=== PATIENT | female | born 1945 | race Caucasian/White ===

== ENCOUNTER 2018-06-09 10:30 | Emergency (ER) | payer MEDICARE ==
[~2018-06-09] VITALS: Ht 152.4 cm; Wt 56.7 kg
--- NOTE | 2018-06-09 10:50 | PHYS DOC ---
Adult General Chief Complaint Chief Complaint: NOSEBLEED HPI HPI Patient is a 73 year old female who presents to the ER with complaints of a right-sided nose bleed x4 in the last 24 hours. Pt states that this morning her nosebleed lasted approximately 15 minutes. She denies any injury to her nose, headache, nausea, or vomiting. Pt states that she stopped taking her blood pressure medications 2 years ago because she didn't think she needed it. She does not take any blood thinners. Review of Systems Review of Systems Constitutional: Denies fever or chills [] HENT: Denies nasal congestion or sore throat; see HPI[] Respiratory: Denies cough or shortness of breath [] Cardiovascular: No additional information not addressed in HPI [] GI: Denies nausea or vomiting Integument: Denies rash or skin lesions [] Neurologic: Denies headache, focal weakness or sensory changes [] All other systems were reviewed and found to be within normal limits, except as documented in this note. Current Medications Current Medications Current Medications Medications (Trade) Dose Ordered Sig/Cecil Start Time Stop Time Status Last Admin Dose Admin Clonidine HCl (Catapres) 0.1 mg 1X ONCE 06/09/18 11:30 06/09/18 11:31 DC 06/09/18 11:39 0.1 MG Oxymetazoline HCl (Afrin) 2 spray 1X ONCE 06/09/18 11:00 06/09/18 11:19 DC 06/09/18 11:02 2 SPRAY Allergies Allergies Allergies Coded Allergies Type Severity Reaction Last Updated Verified Penicillins Allergy Intermediate 06/09/18 Yes Physical Exam Physical Exam Constitutional: Well developed, well nourished, no acute distress, non-toxic appearance. [] HENT: Normocephalic, atraumatic, bilateral external ears normal, oropharynx moist, no oral exudates, no active bleeding in nares; scant amount of clotted blood noted in R posterior pharynx, R nare nasal mucosa erythematous. [] Eyes: PERRLA, conjunctiva normal, no discharge. [] Neck: Normal range of motion, no tenderness, supple, no stridor. [] Cardiovascular:Heart rate regular rhythm, no murmur [] Lungs & Thorax: Bilateral breath sounds clear to auscultation [] Skin: Warm, dry, no erythema, no rash. [] Neurologic: Alert and oriented X 3, normal motor function, normal sensory function, no focal deficits noted. [] Psychologic: Affect normal, judgement normal, mood normal. [] Current Patient Data Vital Signs Vital Signs Date Time Temp Pulse Resp B/P (MAP) Pulse Ox O2 Delivery O2 Flow Rate FiO2 06/09/18 12:30 166/82 (110) 06/09/18 11:39 100 06/09/18 11:08 18 Room Air 06/09/18 10:46 97.8 97 97.8 Lab Values Laboratory Tests Test 06/09/18 10:55 White Blood Count 8.7 x10^3/uL (4.0-11.0) Red Blood Count 4.82 x10^6/uL (3.50-5.40) Hemoglobin 14.8 g/dL (12.0-15.5) Hematocrit 44.3 % (36.0-47.0) Mean Corpuscular Volume 92 fL (79-100) Mean Corpuscular Hemoglobin 31 pg (25-35) Mean Corpuscular Hemoglobin Concent 33 g/dL (31-37) Red Cell Distribution Width 14.9 % (11.5-14.5) H Platelet Count 448 x10^3/uL (140-400) H Neutrophils (%) (Auto) 85 % (31-73) H Lymphocytes (%) (Auto) 9 % (24-48) L Monocytes (%) (Auto) 4 % (0-9) Eosinophils (%) (Auto) 1 % (0-3) Basophils (%) (Auto) 1 % (0-3) Neutrophils # (Auto) 7.4 x10^3uL (1.8-7.7) Lymphocytes # (Auto) 0.8 x10^3/uL (1.0-4.8) L Monocytes # (Auto) 0.3 x10^3/uL (0.0-1.1) Eosinophils # (Auto) 0.0 x10^3/uL (0.0-0.7) Basophils # (Auto) 0.1 x10^3/uL (0.0-0.2) Segmented Neutrophils % 83 % (35-66) H Band Neutrophils % 1 % (0-9) Lymphocytes % 11 % (24-48) L Monocytes % 4 % (0-10) Basophils % 1 % (0-3) Platelet Estimate Increased (ADEQUATE) Prothrombin Time 13.3 SEC (11.7-14.0) Prothrombin Time INR 1.1 (0.8-1.1) Laboratory Tests 06/09/18 10:55 EKG EKG [] Radiology/Procedures Radiology/Procedures [] Course & Med Decision Making Course & Med Decision Making Pertinent Labs and Imaging studies reviewed. (See chart for details) dx: nose bleed resolved, hypertension Pt was given afrin in the ER, and a rapid rhino was inserted into the right nare by Dr. White and myself. Pt was given 0.1 mg of clonidine for BP. CBC and INR not concerning for anemia or clotting problems. Prescriptions written for lisinopril and amoxicillin. Pt was instructed to follow up with PCP next week about hypertension. Follow up with ENT or return to ER in 3 days for packing removal. Retrun to ER sooner symptoms worsen. Patient verbalized an understanding of home care, medications, follow-up, and return to ED instructions and was in agreement with the plan of care. [] Dragon Disclaimer Dragon Disclaimer This electronic medical record was generated, in whole or in part, using a voice recognition dictation system. Departure Departure Impression: Primary Impression: Bleeding nose Additional Impression: Hypertension Disposition: 01 HOME, SELF-CARE Condition: STABLE Referrals: NO PCP (PCP) ASTER JONES MD Patient Instructions: Nosebleed, [id number] Additional Instructions: Fill prescription and use as directed. Follow up with PCP next week about hypertension. Follow up with ENT Dr. Jones or return to ER in 3 days for packing removal. Return to ER sooner symptoms worsen. Scripts Amoxicillin (AMOXICILLIN) 875 Mg Tablet 1 TAB PO BID, #14 TAB Prov: RALPH ALEJO ELDER COUNSELOR 06/09/18 Lisinopril (LISINOPRIL) 10 Mg Tablet 1 TAB PO DAILY, #30 TAB 0 Refills Prov: RALPH ALEJO ELDER COUNSELOR 06/09/18 Problem Qualifiers Additional Impression: Hypertension Hypertension type: unspecified Qualified Codes: I10 - Essential (primary) hypertension RALPH ALEJO ELDER COUNSELOR Jun 09, 2018 10:50
[2018-06-09] MEDS ORDERED: OXYMETAZOLINE 0.05% NASAL SPRAY 30ML BOTTLE. NS ONE (11:00)
[2018-06-09 11:03] LABS: BASO # 0.1 x10^3/uL (0.0-0.2); BASO % 1 % (0-3); EOS % 1 % (0-3); HEMATOCRIT 44.3 % (36.0-47.0); HEMOGLOBIN 14.8 g/dL (12.0-15.5); LYMPH # 0.8 x10^3/uL (1.0-4.8); LYMPH % 9 % (24-48); MEAN CORPUSCULAR HEMOGLOBIN 31 pg (25-35); MEAN CORPUSCULAR HGB CONC 33 g/dL (31-37); MEAN CORPUSCULAR VOLUME 92 fL (79-100); MONO # 0.3 x10^3/uL (0.0-1.1); MONO % 4 % (0-9); NEUT # 7.4 x10^3uL (1.8-7.7); NEUT % 85 % (31-73); PLATELET COUNT 448 x10^3/uL (140-400); RED BLOOD COUNT 4.82 x10^6/uL (3.50-5.40); RED CELL DISTRIBUTION WIDTH 14.9 % (11.5-14.5); WHITE BLOOD COUNT 8.7 x10^3/uL (4.0-11.0)
[2018-06-09 11:12] LABS: PROTHROMBIN TIME PATIENT 13.3 SEC (11.7-14.0)
[2018-06-09] MEDS ORDERED: cloNIDine HCL 0.1 MG TABLET PO ONE (11:30)
[2018-06-09 11:36] LABS: % BANDS 1 % (0-9); % BASOS 1 % (0-3); % LYMPHS 11 % (24-48); % MONOS 4 % (0-10); % SEGS 83 % (35-66)
[2018-06-09 11:37] LABS: PLT ESTIMATE INCREASED (ADEQUATE)
[2018-06-09] MEDS ORDERED: LISI10TA2 PO (11:51)
[2018-06-09] MEDS ORDERED: AMOX875T PO (12:45)
[2018-06-09 13:11] VITALS: BP 177/87
== END 2018-06-09 13:12 | disposition home or self-care (01) ==
LOC: ER 10:30
DX: R04.0 Epistaxis (principal); I10 Essential (primary) hypertension; Z88.0 Allergy status to penicillin
CPT/HCPCS: 30905; 36415; 85007; 85025; 85610; 99284-25

== ENCOUNTER 2020-04-06 19:29 | Inpatient (IN) | payer MEDICARE ==
[~2020-04-06] VITALS: Ht 165.1 cm; Wt 49.0 kg
[~2020-04-06 19:29] MED LIST: AMOX875T PO; LISI10TA2 PO
[2020-04-06] MEDS ORDERED: IV NORMAL SALINE 1000ML BAG 1,000 ML IV ONE ×3 (20:15→22:15)
[2020-04-06 20:27] LABS: BASO # 0.1 x10^3/uL (0.0-0.2); BASO % 0 % (0-3); EOS # 0.1 x10^3/uL (0.0-0.7); EOS % 1 % (0-3); HEMATOCRIT 32.1 % (36.0-47.0); HEMOGLOBIN 10.8 g/dL (12.0-15.5); LYMPH # 0.9 x10^3/uL (1.0-4.8); LYMPH % 5 % (24-48); MEAN CORPUSCULAR HEMOGLOBIN 31 pg (25-35); MEAN CORPUSCULAR HGB CONC 34 g/dL (31-37); MEAN CORPUSCULAR VOLUME 92 fL (79-100); MONO # 0.8 x10^3/uL (0.0-1.1); MONO % 5 % (0-9); NEUT % 89 % (31-73); PLATELET COUNT 366 x10^3/uL (140-400); RED BLOOD COUNT 3.47 x10^6/uL (3.50-5.40); RED CELL DISTRIBUTION WIDTH 13.4 % (11.5-14.5); WHITE BLOOD COUNT 16.9 x10^3/uL (4.0-11.0)
--- NOTE | 2020-04-06 20:31 | PHYS DOC ---
Past Medical History Past Medical History: COPD, Hypertension Additional Past Medical Histor: took self off BP meds approx 2 years ago Past Surgical History: No Surgical History Smoking Status: Current Every Day Smoker Alcohol Use: Heavy Drug Use: None General Adult EDM: Chief Complaint: SHORTNESS OF BREATH HPI: HPI: Patient is a 74 year old female with past medical history of hypertension and COPD daily smoker presents with a chief complaint of generalized weakness asso ciated with nausea and vomiting since the beginning of February. Patient states nausea and vomiting have been going on and off since onset. Patient states weakness has progressively become worse. Patient has occasional cough with sputum production which she states is chronic. She denies any fever chills chest pain or shortness of breath. Review of Systems: Review of Systems: Constitutional: Denies fever or chills. [] Eyes: Denies change in visual acuity. [] HENT: Denies nasal congestion or sore throat. [] Respiratory: Denies cough or shortness of breath. [] Cardiovascular: Denies chest pain or edema. [] GI: Denies abdominal pain, bloody stools or diarrhea. [Positive nausea and vomiting] : Denies dysuria. [] Musculoskeletal: Denies back pain or joint pain. [] Integument: Denies rash. [] Neurologic: Denies headache, focal weakness or sensory changes. [Positive generalized weakness] Endocrine: Denies polyuria or polydipsia. [] Lymphatic: Denies swollen glands. [] Psychiatric: Denies depression or anxiety. [] Heart Score: Risk Factors: Risk Factors: DM, Current or recent (<one month) smoker, HTN, HLP, family history of CAD, obesity. Risk Scores: Score 0 - 3: 2.5% MACE over next 6 weeks - Discharge Home Score 4 - 6: 20.3% MACE over next 6 weeks - Admit for Clinical Observation Score 7 - 10: 72.7% MACE over next 6 weeks - Early Invasive Strategies Current Medications: Current Medications Medications (Trade) Dose Ordered Sig/Cecil Start Time Stop Time Status Last Admin Dose Admin Sodium Chloride 1,000 ml @ 1,000 mls/hr 1X ONCE 04/06/20 20:15 04/06/20 21:14 Allergies: Allergies: Allergies Coded Allergies Type Severity Reaction Last Updated Verified Penicillins Allergy Intermediate 06/09/18 Yes Physical Exam: PE: Constitutional: Well developed, well nourished, no acute distress, non-toxic appearance. [] HENT: Normocephalic, atraumatic, bilateral external ears normal, oropharynx moist, no oral exudates, nose normal. [] Eyes: PERRLA, EOMI, conjunctiva normal, no discharge. [] Neck: Normal range of motion, no tenderness, supple, no stridor. [] Cardiovascular: Tachycardia Lungs & Thorax: Bilateral breath sounds clear to auscultation [] Abdomen: Bowel sounds normal, soft, no tenderness, no masses, no pulsatile masses. [] Skin: Warm, dry, no erythema, no rash. [] Back: No tenderness, no CVA tenderness. [] Extremities: No tenderness, no cyanosis, no clubbing, ROM intact, no edema. [] Neurologic: Alert and oriented X 3, normal motor function, normal sensory function, no focal deficits noted. [] Psychologic: Affect normal, judgement normal, mood normal. [] Current Patient Data: Labs: Laboratory Tests Test 04/06/20 20:20 White Blood Count 16.9 x10^3/uL (4.0-11.0) H Red Blood Count 3.47 x10^6/uL (3.50-5.40) L Hemoglobin 10.8 g/dL (12.0-15.5) L Hematocrit 32.1 % (36.0-47.0) L Mean Corpuscular Volume 92 fL (79-100) Mean Corpuscular Hemoglobin 31 pg (25-35) Mean Corpuscular Hemoglobin Concent 34 g/dL (31-37) Red Cell Distribution Width 13.4 % (11.5-14.5) Platelet Count 366 x10^3/uL (140-400) Neutrophils (%) (Auto) 89 % (31-73) H Lymphocytes (%) (Auto) 5 % (24-48) L Monocytes (%) (Auto) 5 % (0-9) Eosinophils (%) (Auto) 1 % (0-3) Basophils (%) (Auto) 0 % (0-3) Neutrophils # (Auto) 15.0 x10^3/uL (1.8-7.7) H Lymphocytes # (Auto) 0.9 x10^3/uL (1.0-4.8) L Monocytes # (Auto) 0.8 x10^3/uL (0.0-1.1) Eosinophils # (Auto) 0.1 x10^3/uL (0.0-0.7) Basophils # (Auto) 0.1 x10^3/uL (0.0-0.2) Platelet Estimate Pending Laboratory Tests 04/06/20 20:20 EKG: EKG: EKG time 2000 Sinus tachycardia Heart rate [address] elevation no ST depression no acute [place] [] Radiology/Procedures: Radiology/Procedures: [] Impression: 1. Reticular opacities of lungs likely chronic pulmonary fibrosis. 2. Possible volume loss in the right as well as infiltrates. Atypical pneumonia or a mass with postobstructive atelectasis is possible. Course & Med Decision Making: Course & Med Decision Making Pertinent Labs and Imaging studies reviewed. (See chart for details) [] Patient was evaluated for chief complaint. Work-up consisted of laboratory analysis radiologic imaging and EKG. Results reviewed and discussed with patient. Patient x-ray chronic pulmonary fibrosis volume loss on the right as well as an infiltrate atypical pneumonia versus a mass with postobstructive atelectasis. I did dose patient with Rocephin and Zithromax. Patient's calcium noted to be 15.5 this was treated with 2 L of IV fluids. Creatinine noted to be 3.2. Did not order CT chest due to creatinine level. EKG sinus tachycardia no acute ischemic changes troponin 0 0.03 patient denies any chest pain. Patient will be admitted to the hospitalist with pulmonary consult. Chong Disclaimer: Chong Disclaimer: This electronic medical record was generated, in whole or in part, using a voice recognition dictation system. Departure Departure Referrals: NO PCP (PCP) Justicifation of Admission Dx: Justifications for Admission: Justification of Admission Dx: Yes Acute Renal Failure: 3-Fold Rise in Serum Crea Comments: Acute renal failure hypercalcemia TOBIN ORTEGA I DO Apr 06, 2020 20:31
[2020-04-06 20:36] LABS: PROTHROMBIN TIME PATIENT 14.5 SEC (11.7-14.0)
[2020-04-06 20:42] LABS: ALBUMIN 2.6 g/dL (3.4-5.0); ALBUMIN/GLOBULIN RATIO 0.6 (1.0-1.7); CREATININE 3.2 mg/dL (0.6-1.0); GFR 14.2; POTASSIUM 3.6 mmol/L (3.5-5.1); TOTAL BILIRUBIN 0.3 mg/dL (0.2-1.0); TOTAL PROTEIN 6.9 g/dL (6.4-8.2)
[2020-04-06 20:44] LABS: CALCIUM 15.5 mg/dL (8.5-10.1)
[2020-04-06 20:50] LABS: % BANDS 2 % (0-9); % LYMPHS 7 % (24-48); % METAS 1 % (0-0); % MONOS 4 % (0-10); % SEGS 86 % (35-66); PLT ESTIMATE ADEQUATE (ADEQUATE); TOXIC GRANULATION SLIGHT
--- NOTE | 2020-04-06 20:52 | RAD ---
CHEST AP ONLY Clinical History: Reason: cough sob / Spl. Instructions: / History: Technique: AP view of the chest was obtained at 04/06/2020 7:53 PM. Comparison: None. Findings: The heart is normal size. The pulmonary vessels appear normal. The patient is rotated to the right. There is is patchy opacities throughout the right lung. There is increased reticular opacities of lungs. Impression: 1. Reticular opacities of lungs likely chronic pulmonary fibrosis. 2. Possible volume loss in the right as well as infiltrates. Atypical pneumonia or a mass with postobstructive atelectasis is possible. Electronically signed by: Carroll Prieto III, MD (04/06/2020 8:49 PM) [facility]
[2020-04-06] MEDS ORDERED: cefTRIAXone IV Push 1 GM VIAL. IVP ONE (21:30)
[2020-04-06] MEDS ORDERED: AZITHROMYCIN 250 MG TABLET. PO ONE (21:30)
[2020-04-06] MEDS: IV NORMAL SALINE 1000ML BAG 1,000 ML IV SCH (21:33)
[2020-04-06] MEDS ORDERED: DEXTROSE 50% 25 GM / 50ML DISP.SYRIN. IV PRN (21:45)
[2020-04-06] MEDS ORDERED: ONDANSETRON PF 4 MG/2 ML VIAL. IV PRN (21:45)
[2020-04-06] MEDS ORDERED: DOCUSATE SODIUM 100 MG CAPSULE. PO PRN (21:45)
[2020-04-06] MEDS ORDERED: POTASSIUM CHLORIDE 10MEQ 100 ML IV PRN ×2 (21:45)
[2020-04-06] MEDS ORDERED: POTASSIUM CHLORIDE 20 MEQ TABLET.ER. PO PRN (21:45)
[2020-04-06] MEDS ORDERED: SENNOSIDES 8.6 MG TABLET PO PRN (21:45)
[2020-04-06] MEDS ORDERED: ONDANSETRON PF 4 MG/2 ML VIAL. IVP PRN (21:45)
[2020-04-06] MEDS ORDERED: ACETAMINOPHEN 325 MG TABLET. PO PRN (21:45)
[2020-04-06] MEDS ORDERED: MAGNESIUM SULFATE 2GM 50 ML IV PRN (21:45)
[2020-04-06] MEDS ORDERED: IPRATRPIUM/ALBUTEROL 0.5/2.5MG 3 ML NEBU. NEB SCH (22:00)
[2020-04-06 22:06] LABS: BILIRUBIN,URINE NEGATIVE (NEG); CLARITY,URINE CLOUDY; COLOR,URINE YELLOW; NITRITE,URINE NEGATIVE (NEG); PH,URINE 5.5 (<5.0-8.0); PROTEIN,URINE NEGATIVE (NEG-TRACE); UROBILINOGEN,URINE 0.2 mg/dL (0.2 mg/dL)
[2020-04-06 22:10] LABS: BACTERIA,URINE MANY /HPF (0-FEW); SQUAMOUS EPITHELIAL CELL,UR MANY /LPF
[2020-04-06 22:12] LABS: RBC,URINE RARE /HPF (0-2)
[2020-04-07] VITALS (7 sets, daily range): BP systolic 129–146; BP diastolic 61–80
[2020-04-07 03:35] LABS: BASO # 0.1 x10^3/uL (0.0-0.2); BASO % 1 % (0-3); EOS # 0.1 x10^3/uL (0.0-0.7); EOS % 1 % (0-3); HEMATOCRIT 30.7 % (36.0-47.0); HEMOGLOBIN 10.1 g/dL (12.0-15.5); LYMPH # 0.9 x10^3/uL (1.0-4.8); LYMPH % 5 % (24-48); MEAN CORPUSCULAR HEMOGLOBIN 31 pg (25-35); MEAN CORPUSCULAR HGB CONC 33 g/dL (31-37); MEAN CORPUSCULAR VOLUME 93 fL (79-100); MONO # 0.8 x10^3/uL (0.0-1.1); MONO % 5 % (0-9); NEUT # 15.9 x10^3/uL (1.8-7.7); NEUT % 89 % (31-73); PLATELET COUNT 356 x10^3/uL (140-400); RED CELL DISTRIBUTION WIDTH 13.7 % (11.5-14.5); WHITE BLOOD COUNT 17.9 x10^3/uL (4.0-11.0)
[2020-04-07 03:52] LABS: ALBUMIN 2.4 g/dL (3.4-5.0); ALBUMIN/GLOBULIN RATIO 0.8 (1.0-1.7); GFR 15.3; POTASSIUM 3.6 mmol/L (3.5-5.1); TOTAL BILIRUBIN 0.3 mg/dL (0.2-1.0); TOTAL PROTEIN 5.6 g/dL (6.4-8.2)
[2020-04-07 03:53] LABS: MAGNESIUM 1.6 mg/dL (1.8-2.4); PHOSPHORUS 5.7 mg/dL (2.6-4.7)
[2020-04-07 04:00] LABS: CALCIUM 14.9 mg/dL (8.5-10.1)
[2020-04-07] MEDS ORDERED: POLY17PO29 PO (07:25)
[2020-04-07] MEDS ORDERED: HYDR12.575 PO (07:25)
[2020-04-07] MEDS ORDERED: IPRATRPIUM/ALBUTEROL 0.5/2.5MG 3 ML NEBU. NEB SCH ×2 (08:00→22:00)
--- NOTE | 2020-04-07 08:32 | PDOC1 ---
History and Physical Date of Admission Date of Admission DATE: 04/07/20 TIME: 08:31 Identification/Chief Complaint Chief Complaint SEEN IN ER WITH WEAKNESS , 74 year old female with past medical history of hypertension and COPD daily smoker presents with a chief complaint of generalized weakness associated with nausea and vomiting since the beginning of February. Patient states nausea and vomiting have been going on and off since onset. Patient states weakness has progressively become worse. Patient has occasional cough with sputum production which she states is chronic. She denies any fever chills chest pain or shortness of breath. CR NOW IN 3 RANGE, C/O BACK PAIN, 15 LB RECENT WEIGHT LOSS, Nephrology consulted, uti likely Past Medical History Past Medical History Past Medical History Past Medical History Past Medical History: COPD, Hypertension Additional Past Medical Histor: took self off BP meds approx 2 years ago Past Surgical History: No Surgical History Smoking Status: Current Every Day Smoker Alcohol Use: Heavy Drug Use: None FHX COPD Musculoskeletal: Osteoarthritis Family History Family History: Hypertension Social History Smoke: <1 pack per day ALCOHOL: occassional Drugs: None Current Problem List Problem List Problems Medical Problems: (1) Hypercalcemia Status: Acute (2) Person under investigation for COVID-19 Status: Acute Current Medications Current Medications Current Medications Sodium Chloride 1,000 ml @ 1,000 mls/hr 1X ONCE IV Last administered on 04/06/20at 21:37; Start 04/06/20 at 20:15; Stop 04/06/20 at 21:14; Status DC Sodium Chloride 1,000 ml @ 1,000 mls/hr 1X ONCE IV Last administered on 04/06/20at 01:00; Start 04/06/20 at 21:30; Stop 04/06/20 at 22:29; Status DC Ceftriaxone Sodium (Rocephin) 1 gm 1X ONCE IVP Last administered on 04/06/20at 21:36; Start 04/06/20 at 21:30; Stop 04/06/20 at 21:31; Status DC Azithromycin (Zithromax) 500 mg 1X ONCE PO Last administered on 04/06/20at 21:35; Start 04/06/20 at 21:30; Stop 04/06/20 at 21:31; Status DC Ondansetron HCl (Zofran) 4 mg PRN Q8HRS PRN IV NAUSEA/VOMITING; Start 04/06/20 at 21:45; Stop 04/07/20 at 21:44 Sennosides (Senna) 17.2 mg PRN BID PRN PO CONSTIPATION; Start 04/06/20 at 21:45 Docusate Sodium (Colace) 100 mg PRN DAILY PRN PO HARD STOOLS; Start 04/06/20 at 21:45 Ondansetron HCl (Zofran) 4 mg PRN Q6HRS PRN IVP NAUSEA/VOMITING; Start 04/06/20 at 21:45 Albuterol/ Ipratropium (Duoneb) 3 ml RTQID NEB ; Start 04/07/20 at 08:00; Stop 04/06/20 at 22:04; Status DC Potassium Chloride (Klor-Con) 40 meq 1X PRN PO PER PROTOCOL; Start 04/06/20 at 21:45 Magnesium Oxide (Magnesium Oxide) 400 mg PRN BID PRN PO SEE PARAMETER; Start 04/07/20 at 09:00 Potassium Chloride/Water 100 ml @ 100 mls/hr PRN Q1HR PRN IV SEE PARAMETER; Start 04/06/20 at 21:45 Magnesium Sulfate 50 ml @ 25 mls/hr PRN Q24HRS PRN IV SEE PARAMETER; Start 04/06/20 at 21:45 Potassium Chloride/Water 100 ml @ 100 mls/hr PRN Q1HR PRN IV low k; Start 04/06/20 at 21:45 Dextrose (Dextrose 50%-Water Syringe) 12.5 gm PRN Q15MIN PRN IV SEE COMMENTS; Start 04/06/20 at 21:45 Sodium Chloride 1,000 ml @ 100 mls/hr Q10H IV ; Start 04/06/20 at 21:33 Acetaminophen (Tylenol) 650 mg PRN Q4HRS PRN PO TEMP OVER 100.4F OR MILD PAIN; Start 04/06/20 at 21:45 Albuterol/ Ipratropium (Duoneb) 3 ml Q4HRS W/A NEB ; Start 04/06/20 at 22:00; Stop 04/07/20 at 01:16; Status DC Heparin Sodium (Porcine) (Heparin Sodium) 5,000 unit Q12HR SQ ; Start 04/07/20 at 09:00 Ceftriaxone Sodium (Rocephin) 1 gm Q24H IVP ; Start 04/07/20 at 21:00 Azithromycin 500 mg/Sodium Chloride 250 ml @ 250 mls/hr Q24H IV ; Start 04/07/20 at 21:00 Sodium Chloride 1,000 ml @ 125 mls/hr 1X ONCE IV Last administered on 04/06/20at 00:43; Start 04/06/20 at 22:15; Stop 04/07/20 at 06:14; Status DC Albuterol/ Ipratropium (Duoneb) 3 ml PRN Q4HRS NEB ; Start 04/07/20 at 22:00 Active Scripts Active Lisinopril 10 Mg Tablet 1 Tab PO DAILY Reported Hydrochlorothiazide Capsule (Hydrochlorothiazide) 12.5 Mg Capsule 12.5 Mg PO DAILY Miralax (Polyethylene Glycol 3350) 17 Gm Powd.pack 1 Packet PO DAILY 2 Days dissolve in water Allergies Allergies: Coded Allergies: Penicillins (Verified Allergy, Intermediate, 06/09/18) RASH ROS Review of System Constitutional: Denies fever or chills. [] Eyes: Denies change in visual acuity. [] HENT: Denies nasal congestion or sore throat. [] Respiratory: Denies cough or shortness of breath. [] Cardiovascular: Denies chest pain or edema. [] GI: Denies abdominal pain, bloody stools or diarrhea. [Positive nausea and vomiting] : Denies dysuria. [] Musculoskeletal: pos back pain [] Integument: Denies rash. [] Neurologic: Denies headache, focal weakness or sensory changes. [Positive ge neralized weakness] Endocrine: Denies polyuria or polydipsia. [] Lymphatic: Denies swollen glands. [] Psychiatric: Denies depression or anxiety. [] Respiratory: YES: Cough Musculoskeletal: Yes Joint Stiffness Physical Exam Physical Exam Constitutional: thin no acute distress, non-toxic appearance. [] HENT: Normocephalic, atraumatic, bilateral external ears normal, oropharynx moist, no oral exudates, nose normal. [] Eyes: PERRLA, EOMI, conjunctiva normal, no discharge. [] Neck: Normal range of motion, no tenderness, supple, no stridor. [] Cardiovascular: Tachycardia Lungs & Thorax: Bilateral breath sounds clear to auscultation [] Abdomen: Bowel sounds normal, soft, no tenderness, no masses, no pulsatile masses. [] Skin: Warm, dry, no erythema, no rash. [] Back: No tenderness, no CVA tenderness. [] Extremities: No tenderness, no cyanosis, no clubbing, ROM intact, no edema. [] Neurologic: Alert and oriented X 3, normal motor function, normal sensory function, no focal deficits noted. [] Psychologic: Affect normal, judgment normal, mood normal. [] General: Alert, Oriented X3, Cooperative HEENT: EOMI Breasts: Not examined Rectal Exam: not examined PELVIC: Examination not indicated Extremities: No cyanosis Neuro: Normal speech, Cranial nerves 3-12 NL Psych/Mental Status: Mental status NL, Mood NL Vitals Vitals Vital Signs Date Time Temp Pulse Resp B/P (MAP) Pulse Ox O2 Delivery O2 Flow Rate FiO2 04/07/20 07:47 96.9 105 146/68 (94) 94 Room Air 96.9 04/06/20 21:26 16 Labs Labs Laboratory Tests Test 04/06/20 20:20 04/06/20 22:00 04/06/20 23:38 04/07/20 03:25 White Blood Count 16.9 x10^3/uL (4.0-11.0) 17.9 x10^3/uL (4.0-11.0) Red Blood Count 3.47 x10^6/uL (3.50-5.40) 3.30 x10^6/uL (3.50-5.40) Hemoglobin 10.8 g/dL (12.0-15.5) 10.1 g/dL (12.0-15.5) Hematocrit 32.1 % (36.0-47.0) 30.7 % (36.0-47.0) Mean Corpuscular Volume 92 fL (79-100) 93 fL (79-100) Mean Corpuscular Hemoglobin 31 pg (25-35) 31 pg (25-35) Mean Corpuscular Hemoglobin Concent 34 g/dL (31-37) 33 g/dL (31-37) Red Cell Distribution Width 13.4 % (11.5-14.5) 13.7 % (11.5-14.5) Platelet Count 366 x10^3/uL (140-400) 356 x10^3/uL (140-400) Neutrophils (%) (Auto) 89 % (31-73) 89 % (31-73) Lymphocytes (%) (Auto) 5 % (24-48) 5 % (24-48) Monocytes (%) (Auto) 5 % (0-9) 5 % (0-9) Eosinophils (%) (Auto) 1 % (0-3) 1 % (0-3) Basophils (%) (Auto) 0 % (0-3) 1 % (0-3) Neutrophils # (Auto) 15.0 x10^3/uL (1.8-7.7) 15.9 x10^3/uL (1.8-7.7) Lymphocytes # (Auto) 0.9 x10^3/uL (1.0-4.8) 0.9 x10^3/uL (1.0-4.8) Monocytes # (Auto) 0.8 x10^3/uL (0.0-1.1) 0.8 x10^3/uL (0.0-1.1) Eosinophils # (Auto) 0.1 x10^3/uL (0.0-0.7) 0.1 x10^3/uL (0.0-0.7) Basophils # (Auto) 0.1 x10^3/uL (0.0-0.2) 0.1 x10^3/uL (0.0-0.2) Segmented Neutrophils % 86 % (35-66) Band Neutrophils % 2 % (0-9) Lymphocytes % 7 % (24-48) Monocytes % 4 % (0-10) Metamyelocytes % 1 % (0-0) Toxic Granulation Slight Platelet Estimate Adequate (ADEQUATE) Prothrombin Time 14.5 SEC (11.7-14.0) Prothromb Time International Ratio 1.2 (0.8-1.1) Activated Partial Thromboplast Time 22 SEC (24-38) Sodium Level 133 mmol/L (136-145) 136 mmol/L (136-145) Potassium Level 3.6 mmol/L (3.5-5.1) 3.6 mmol/L (3.5-5.1) Chloride Level 97 mmol/L (98-107) 101 mmol/L (98-107) Carbon Dioxide Level 27 mmol/L (21-32) 24 mmol/L (21-32) Anion Gap 9 (6-14) 11 (6-14) Blood Urea Nitrogen 77 mg/dL (7-20) 75 mg/dL (7-20) Creatinine 3.2 mg/dL (0.6-1.0) 3.0 mg/dL (0.6-1.0) Estimated GFR (Cockcroft-Gault) 14.2 15.3 BUN/Creatinine Ratio 24 (6-20) 25 (6-20) Glucose Level 128 mg/dL (70-99) 100 mg/dL (70-99) Calcium Level 15.5 mg/dL (8.5-10.1) 14.9 mg/dL (8.5-10.1) Total Bilirubin 0.3 mg/dL (0.2-1.0) 0.3 mg/dL (0.2-1.0) Aspartate Amino Transf (AST/SGOT) 87 U/L (15-37) 76 U/L (15-37) Alanine Aminotransferase (ALT/SGPT) 19 U/L (14-59) 16 U/L (14-59) Alkaline Phosphatase 132 U/L (46-116) 118 U/L (46-116) Troponin I Quantitative 0.035 ng/mL (0.000-0.055) 0.023 ng/mL (0.000-0.055) 0.037 ng/mL (0.000-0.055) Total Protein 6.9 g/dL (6.4-8.2) 5.6 g/dL (6.4-8.2) Albumin 2.6 g/dL (3.4-5.0) 2.4 g/dL (3.4-5.0) Albumin/Globulin Ratio 0.6 (1.0-1.7) 0.8 (1.0-1.7) 25-Hydroxy Vitamin D Total 33.0 ng/mL (30-100) Urine Collection Type Void Urine Color Yellow Urine Clarity Cloudy Urine pH 5.5 (<5.0-8.0) Urine Specific [place] 1.010 (1.000-1.030) Urine Protein Negative mg/dL (NEG-TRACE) Urine Glucose (UA) Negative mg/dL (NEG) Urine Ketones (Stick) Negative mg/dL (NEG) Urine Blood Negative (NEG) Urine Nitrite Negative (NEG) Urine Bilirubin Negative (NEG) Urine Urobilinogen Dipstick 0.2 mg/dL (0.2 mg/dL) Urine Leukocyte Esterase Large (NEG) Urine RBC Rare /HPF (0-2) Urine WBC 11-20 /HPF (0-4) Urine Squamous Epithelial Cells Many /LPF Urine Bacteria Many /HPF (0-FEW) Phosphorus Level 5.7 mg/dL (2.6-4.7) Magnesium Level 1.6 mg/dL (1.8-2.4) Test 04/07/20 05:17 Lactic Acid Level 1.0 mmol/L (0.4-2.0) Laboratory Tests Test 04/06/20 20:20 04/06/20 22:00 04/06/20 23:38 04/07/20 03:25 White Blood Count 16.9 x10^3/uL (4.0-11.0) 17.9 x10^3/uL (4.0-11.0) Red Blood Count 3.47 x10^6/uL (3.50-5.40) 3.30 x10^6/uL (3.50-5.40) Hemoglobin 10.8 g/dL (12.0-15.5) 10.1 g/dL (12.0-15.5) Hematocrit 32.1 % (36.0-47.0) 30.7 % (36.0-47.0) Mean Corpuscular Volume 92 fL (79-100) 93 fL (79-100) Mean Corpuscular Hemoglobin 31 pg (25-35) 31 pg (25-35) Mean Corpuscular Hemoglobin Concent 34 g/dL (31-37) 33 g/dL (31-37) Red Cell Distribution Width 13.4 % (11.5-14.5) 13.7 % (11.5-14.5) Platelet Count 366 x10^3/uL (140-400) 356 x10^3/uL (140-400) Neutrophils (%) (Auto) 89 % (31-73) 89 % (31-73) Lymphocytes (%) (Auto) 5 % (24-48) 5 % (24-48) Monocytes (%) (Auto) 5 % (0-9) 5 % (0-9) Eosinophils (%) (Auto) 1 % (0-3) 1 % (0-3) Basophils (%) (Auto) 0 % (0-3) 1 % (0-3) Neutrophils # (Auto) 15.0 x10^3/uL (1.8-7.7) 15.9 x10^3/uL (1.8-7.7) Lymphocytes # (Auto) 0.9 x10^3/uL (1.0-4.8) 0.9 x10^3/uL (1.0-4.8) Monocytes # (Auto) 0.8 x10^3/uL (0.0-1.1) 0.8 x10^3/uL (0.0-1.1) Eosinophils # (Auto) 0.1 x10^3/uL (0.0-0.7) 0.1 x10^3/uL (0.0-0.7) Basophils # (Auto) 0.1 x10^3/uL (0.0-0.2) 0.1 x10^3/uL (0.0-0.2) Segmented Neutrophils % 86 % (35-66) Band Neutrophils % 2 % (0-9) Lymphocytes % 7 % (24-48) Monocytes % 4 % (0-10) Metamyelocytes % 1 % (0-0) Toxic Granulation Slight Platelet Estimate Adequate (ADEQUATE) Prothrombin Time 14.5 SEC (11.7-14.0) Prothromb Time International Ratio 1.2 (0.8-1.1) Activated Partial Thromboplast Time 22 SEC (24-38) Sodium Level 133 mmol/L (136-145) 136 mmol/L (136-145) Potassium Level 3.6 mmol/L (3.5-5.1) 3.6 mmol/L (3.5-5.1) Chloride Level 97 mmol/L (98-107) 101 mmol/L (98-107) Carbon Dioxide Level 27 mmol/L (21-32) 24 mmol/L (21-32) Anion Gap 9 (6-14) 11 (6-14) Blood Urea Nitrogen 77 mg/dL (7-20) 75 mg/dL (7-20) Creatinine 3.2 mg/dL (0.6-1.0) 3.0 mg/dL (0.6-1.0) Estimated GFR (Cockcroft-Gault) 14.2 15.3 BUN/Creatinine Ratio 24 (6-20) 25 (6-20) Glucose Level 128 mg/dL (70-99) 100 mg/dL (70-99) Calcium Level 15.5 mg/dL (8.5-10.1) 14.9 mg/dL (8.5-10.1) Total Bilirubin 0.3 mg/dL (0.2-1.0) 0.3 mg/dL (0.2-1.0) Aspartate Amino Transf (AST/SGOT) 87 U/L (15-37) 76 U/L (15-37) Alanine Aminotransferase (ALT/SGPT) 19 U/L (14-59) 16 U/L (14-59) Alkaline Phosphatase 132 U/L (46-116) 118 U/L (46-116) Troponin I Quantitative 0.035 ng/mL (0.000-0.055) 0.023 ng/mL (0.000-0.055) 0.037 ng/mL (0.000-0.055) Total Protein 6.9 g/dL (6.4-8.2) 5.6 g/dL (6.4-8.2) Albumin 2.6 g/dL (3.4-5.0) 2.4 g/dL (3.4-5.0) Albumin/Globulin Ratio 0.6 (1.0-1.7) 0.8 (1.0-1.7) 25-Hydroxy Vitamin D Total 33.0 ng/mL (30-100) Urine Collection Type Void Urine Color Yellow Urine Clarity Cloudy Urine pH 5.5 (<5.0-8.0) Urine Specific [place] 1.010 (1.000-1.030) Urine Protein Negative mg/dL (NEG-TRACE) Urine Glucose (UA) Negative mg/dL (NEG) Urine Ketones (Stick) Negative mg/dL (NEG) Urine Blood Negative (NEG) Urine Nitrite Negative (NEG) Urine Bilirubin Negative (NEG) Urine Urobilinogen Dipstick 0.2 mg/dL (0.2 mg/dL) Urine Leukocyte Esterase Large (NEG) Urine RBC Rare /HPF (0-2) Urine WBC 11-20 /HPF (0-4) Urine Squamous Epithelial Cells Many /LPF Urine Bacteria Many /HPF (0-FEW) Phosphorus Level 5.7 mg/dL (2.6-4.7) Magnesium Level 1.6 mg/dL (1.8-2.4) Test 04/07/20 05:17 Lactic Acid Level 1.0 mmol/L (0.4-2.0) Images Images CHEST AP ONLY Clinical History: Reason: cough sob / Spl. Instructions: / History: Technique: AP view of the chest was obtained at 04/06/2020 7:53 PM. Comparison: None. Findings: The heart is normal size. The pulmonary vessels appear normal. The patient is rotated to the right. There is is patchy opacities throughout the right lung. There is increased reticular opacities of lungs. Impression: 1. Reticular opacities of lungs likely chronic pulmonary fibrosis. 2. Possible volume loss in the right as well as infiltrates. Atypical pneumonia or a mass with postobstructive atelectasis is possible. Electronically signed by: Kina Prieto III, MD (04/06/2020 8:49 PM) [facility] DICTATED and SIGNED BY: KINA PRIETO III, MD DATE: 04/06/202048 CHEST AP ONLY Clinical History: Reason: cough sob / Spl. Instructions: / History: Technique: AP view of the chest was obtained at 04/06/2020 7:53 PM. Comparison: None. Findings: The heart is normal size. The pulmonary vessels appear normal. The patient is rotated to the right. There is is patchy opacities throughout the right lung. There is increased reticular opacities of lungs. Impression: 1. Reticular opacities of lungs likely chronic pulmonary fibrosis. 2. Possible volume loss in the right as well as infiltrates. Atypical pneumonia or a mass with postobstructive atelectasis is possible. Electronically signed by: Kina Prieto III, MD (04/06/2020 8:49 PM) [email or web address] DICTATED and SIGNED BY: KINA PRIETO III, MD DATE: 04/06/202048 VTE Prophylaxis Ordered VTE Prophylaxis Devices: No VTE Pharmacological Prophylaxi: Yes Assessment/Plan Assessment/Plan impression 1. chronic pulmonary fibrosis. 2. Possible volume loss in the right as well as infiltrates. Atypical pneumonia or a mass with postobstructive atelectasis is possible. 3. LOW BACK PAIN 4. Recent 15 lb weight loss 5. tobacco abuse disorder 6. renal failure, ? acute, CESILIA? 7. NAUSEA AND VOMITING, VOLUME DEPLETION 8. uti plan admit consult PULM COVID 19 R/O PUI consider ct chest if covid-19 neg NEPHROLOGY CONSULT DVT PROPHYLAXIS IV FLUID SUPPORT avoid nephrotoxic meds emperic iv antibiotics 76 min pt exam, chart review, > 50% of time spent with exam, chart review, pt care coordination NEEDS DPOA Justifications for Admission Other Justification CARLOS VOSS MD Apr 07, 2020 08:32
[2020-04-07] MEDS ORDERED: HEPARIN for SUB-Q USE 5,000 UNIT/ML VIAL. SQ SCH (09:00)
[2020-04-07] MEDS ORDERED: MAGNESIUM OXIDE 400 MG TABLET PO PRN (09:00)
[2020-04-07] MEDS: IV NORMAL SALINE 1000ML BAG 1,000 ML IV SCH ×3 (09:24→20:24)
--- NOTE | 2020-04-07 12:08 | NUR ---
Aerosol tx not given due to PUI status CHolmesRRT
--- NOTE | 2020-04-07 14:51 | EKG ---
[facility] [address] [place] [address] Test Date: 2020-04-06 Test Time: 20:01:32 Pat Name: JV ALVAREZ Department: Room: Gender: [employer]: MERCED : 1945 Requested By: TOBIN ORTEGA Order Number: [id number] Reading MD: Measurements Intervals [place] Rate: 117 P: -14 ND: 142 QRS: -31 QRSD: 86 T: 84 QT: 294 QTc: 414 Interpretive Statements SINUS TACHYCARDIA ATRIAL PREMATURE COMPLEX(ES) ABNORMAL LEFT AXIS DEVIATION LEFT ANTERIOR FASCICULAR BLOCK ST & T ABNORMALITY, CONSIDER HIGH LATERAL ISCHEMIA OR LEFT VENTRICULAR STRAIN ABNORMAL ECG RI6.02 No previous ECG available for comparison
[2020-04-07] MEDS: HYDROcodone/APAP 5/325MG 1 TAB TABLET PO PRN (15:22)
--- NOTE | 2020-04-07 15:27 | PDOC ---
PULMONARY PROGRESS NOTES DATE: 04/07/20 TIME: 15:25 Vitals Vital Signs Date Time Temp Pulse Resp B/P (MAP) Pulse Ox O2 Delivery O2 Flow Rate FiO2 04/07/20 11:19 97.2 124 24 139/67 (91) 92 Room Air 97.2 Labs Laboratory Tests Test 04/06/20 20:20 04/06/20 22:00 04/06/20 22:05 04/06/20 23:38 White Blood Count 16.9 x10^3/uL (4.0-11.0) Red Blood Count 3.47 x10^6/uL (3.50-5.40) Hemoglobin 10.8 g/dL (12.0-15.5) Hematocrit 32.1 % (36.0-47.0) Mean Corpuscular Volume 92 fL (79-100) Mean Corpuscular Hemoglobin 31 pg (25-35) Mean Corpuscular Hemoglobin Concent 34 g/dL (31-37) Red Cell Distribution Width 13.4 % (11.5-14.5) Platelet Count 366 x10^3/uL (140-400) Neutrophils (%) (Auto) 89 % (31-73) Lymphocytes (%) (Auto) 5 % (24-48) Monocytes (%) (Auto) 5 % (0-9) Eosinophils (%) (Auto) 1 % (0-3) Basophils (%) (Auto) 0 % (0-3) Neutrophils # (Auto) 15.0 x10^3/uL (1.8-7.7) Lymphocytes # (Auto) 0.9 x10^3/uL (1.0-4.8) Monocytes # (Auto) 0.8 x10^3/uL (0.0-1.1) Eosinophils # (Auto) 0.1 x10^3/uL (0.0-0.7) Basophils # (Auto) 0.1 x10^3/uL (0.0-0.2) Segmented Neutrophils % 86 % (35-66) Band Neutrophils % 2 % (0-9) Lymphocytes % 7 % (24-48) Monocytes % 4 % (0-10) Metamyelocytes % 1 % (0-0) Toxic Granulation Slight Platelet Estimate Adequate (ADEQUATE) Prothrombin Time 14.5 SEC (11.7-14.0) Prothromb Time International Ratio 1.2 (0.8-1.1) Activated Partial Thromboplast Time 22 SEC (24-38) Sodium Level 133 mmol/L (136-145) Potassium Level 3.6 mmol/L (3.5-5.1) Chloride Level 97 mmol/L (98-107) Carbon Dioxide Level 27 mmol/L (21-32) Anion Gap 9 (6-14) Blood Urea Nitrogen 77 mg/dL (7-20) Creatinine 3.2 mg/dL (0.6-1.0) Estimated GFR (Cockcroft-Gault) 14.2 BUN/Creatinine Ratio 24 (6-20) Glucose Level 128 mg/dL (70-99) Calcium Level 15.5 mg/dL (8.5-10.1) Total Bilirubin 0.3 mg/dL (0.2-1.0) Aspartate Amino Transf (AST/SGOT) 87 U/L (15-37) Alanine Aminotransferase (ALT/SGPT) 19 U/L (14-59) Alkaline Phosphatase 132 U/L (46-116) Troponin I Quantitative 0.035 ng/mL (0.000-0.055) 0.023 ng/mL (0.000-0.055) Total Protein 6.9 g/dL (6.4-8.2) Albumin 2.6 g/dL (3.4-5.0) Albumin/Globulin Ratio 0.6 (1.0-1.7) 25-Hydroxy Vitamin D Total 33.0 ng/mL (30-100) Urine Collection Type Void Urine Color Yellow Urine Clarity Cloudy Urine pH 5.5 (<5.0-8.0) Urine Specific Silva 1.010 (1.000-1.030) Urine Protein Negative mg/dL (NEG-TRACE) Urine Glucose (UA) Negative mg/dL (NEG) Urine Ketones (Stick) Negative mg/dL (NEG) Urine Blood Negative (NEG) Urine Nitrite Negative (NEG) Urine Bilirubin Negative (NEG) Urine Urobilinogen Dipstick 0.2 mg/dL (0.2 mg/dL) Urine Leukocyte Esterase Large (NEG) Urine RBC Rare /HPF (0-2) Urine WBC 11-20 /HPF (0-4) Urine Squamous Epithelial Cells Many /LPF Urine Bacteria Many /HPF (0-FEW) Coronavirus (PCR) Not detected (Not Detected) Test 04/07/20 03:25 04/07/20 05:17 White Blood Count 17.9 x10^3/uL (4.0-11.0) Red Blood Count 3.30 x10^6/uL (3.50-5.40) Hemoglobin 10.1 g/dL (12.0-15.5) Hematocrit 30.7 % (36.0-47.0) Mean Corpuscular Volume 93 fL (79-100) Mean Corpuscular Hemoglobin 31 pg (25-35) Mean Corpuscular Hemoglobin Concent 33 g/dL (31-37) Red Cell Distribution Width 13.7 % (11.5-14.5) Platelet Count 356 x10^3/uL (140-400) Neutrophils (%) (Auto) 89 % (31-73) Lymphocytes (%) (Auto) 5 % (24-48) Monocytes (%) (Auto) 5 % (0-9) Eosinophils (%) (Auto) 1 % (0-3) Basophils (%) (Auto) 1 % (0-3) Neutrophils # (Auto) 15.9 x10^3/uL (1.8-7.7) Lymphocytes # (Auto) 0.9 x10^3/uL (1.0-4.8) Monocytes # (Auto) 0.8 x10^3/uL (0.0-1.1) Eosinophils # (Auto) 0.1 x10^3/uL (0.0-0.7) Basophils # (Auto) 0.1 x10^3/uL (0.0-0.2) Sodium Level 136 mmol/L (136-145) Potassium Level 3.6 mmol/L (3.5-5.1) Chloride Level 101 mmol/L (98-107) Carbon Dioxide Level 24 mmol/L (21-32) Anion Gap 11 (6-14) Blood Urea Nitrogen 75 mg/dL (7-20) Creatinine 3.0 mg/dL (0.6-1.0) Estimated GFR (Cockcroft-Gault) 15.3 BUN/Creatinine Ratio 25 (6-20) Glucose Level 100 mg/dL (70-99) Calcium Level 14.9 mg/dL (8.5-10.1) Phosphorus Level 5.7 mg/dL (2.6-4.7) Magnesium Level 1.6 mg/dL (1.8-2.4) Total Bilirubin 0.3 mg/dL (0.2-1.0) Aspartate Amino Transf (AST/SGOT) 76 U/L (15-37) Alanine Aminotransferase (ALT/SGPT) 16 U/L (14-59) Alkaline Phosphatase 118 U/L (46-116) Troponin I Quantitative 0.037 ng/mL (0.000-0.055) Total Protein 5.6 g/dL (6.4-8.2) Albumin 2.4 g/dL (3.4-5.0) Albumin/Globulin Ratio 0.8 (1.0-1.7) Lactic Acid Level 1.0 mmol/L (0.4-2.0) Laboratory Tests Test 04/06/20 20:20 04/06/20 22:00 04/06/20 22:05 04/06/20 23:38 White Blood Count 16.9 x10^3/uL (4.0-11.0) Red Blood Count 3.47 x10^6/uL (3.50-5.40) Hemoglobin 10.8 g/dL (12.0-15.5) Hematocrit 32.1 % (36.0-47.0) Mean Corpuscular Volume 92 fL (79-100) Mean Corpuscular Hemoglobin 31 pg (25-35) Mean Corpuscular Hemoglobin Concent 34 g/dL (31-37) Red Cell Distribution Width 13.4 % (11.5-14.5) Platelet Count 366 x10^3/uL (140-400) Neutrophils (%) (Auto) 89 % (31-73) Lymphocytes (%) (Auto) 5 % (24-48) Monocytes (%) (Auto) 5 % (0-9) Eosinophils (%) (Auto) 1 % (0-3) Basophils (%) (Auto) 0 % (0-3) Neutrophils # (Auto) 15.0 x10^3/uL (1.8-7.7) Lymphocytes # (Auto) 0.9 x10^3/uL (1.0-4.8) Monocytes # (Auto) 0.8 x10^3/uL (0.0-1.1) Eosinophils # (Auto) 0.1 x10^3/uL (0.0-0.7) Basophils # (Auto) 0.1 x10^3/uL (0.0-0.2) Segmented Neutrophils % 86 % (35-66) Band Neutrophils % 2 % (0-9) Lymphocytes % 7 % (24-48) Monocytes % 4 % (0-10) Metamyelocytes % 1 % (0-0) Toxic Granulation Slight Platelet Estimate Adequate (ADEQUATE) Prothrombin Time 14.5 SEC (11.7-14.0) Prothromb Time International Ratio 1.2 (0.8-1.1) Activated Partial Thromboplast Time 22 SEC (24-38) Sodium Level 133 mmol/L (136-145) Potassium Level 3.6 mmol/L (3.5-5.1) Chloride Level 97 mmol/L (98-107) Carbon Dioxide Level 27 mmol/L (21-32) Anion Gap 9 (6-14) Blood Urea Nitrogen 77 mg/dL (7-20) Creatinine 3.2 mg/dL (0.6-1.0) Estimated GFR (Cockcroft-Gault) 14.2 BUN/Creatinine Ratio 24 (6-20) Glucose Level 128 mg/dL (70-99) Calcium Level 15.5 mg/dL (8.5-10.1) Total Bilirubin 0.3 mg/dL (0.2-1.0) Aspartate Amino Transf (AST/SGOT) 87 U/L (15-37) Alanine Aminotransferase (ALT/SGPT) 19 U/L (14-59) Alkaline Phosphatase 132 U/L (46-116) Troponin I Quantitative 0.035 ng/mL (0.000-0.055) 0.023 ng/mL (0.000-0.055) Total Protein 6.9 g/dL (6.4-8.2) Albumin 2.6 g/dL (3.4-5.0) Albumin/Globulin Ratio 0.6 (1.0-1.7) 25-Hydroxy Vitamin D Total 33.0 ng/mL (30-100) Urine Collection Type Void Urine Color Yellow Urine Clarity Cloudy Urine pH 5.5 (<5.0-8.0) Urine Specific Silva 1.010 (1.000-1.030) Urine Protein Negative mg/dL (NEG-TRACE) Urine Glucose (UA) Negative mg/dL (NEG) Urine Ketones (Stick) Negative mg/dL (NEG) Urine Blood Negative (NEG) Urine Nitrite Negative (NEG) Urine Bilirubin Negative (NEG) Urine Urobilinogen Dipstick 0.2 mg/dL (0.2 mg/dL) Urine Leukocyte Esterase Large (NEG) Urine RBC Rare /HPF (0-2) Urine WBC 11-20 /HPF (0-4) Urine Squamous Epithelial Cells Many /LPF Urine Bacteria Many /HPF (0-FEW) Coronavirus (PCR) Not detected (Not Detected) Test 04/07/20 03:25 04/07/20 05:17 White Blood Count 17.9 x10^3/uL (4.0-11.0) Red Blood Count 3.30 x10^6/uL (3.50-5.40) Hemoglobin 10.1 g/dL (12.0-15.5) Hematocrit 30.7 % (36.0-47.0) Mean Corpuscular Volume 93 fL (79-100) Mean Corpuscular Hemoglobin 31 pg (25-35) Mean Corpuscular Hemoglobin Concent 33 g/dL (31-37) Red Cell Distribution Width 13.7 % (11.5-14.5) Platelet Count 356 x10^3/uL (140-400) Neutrophils (%) (Auto) 89 % (31-73) Lymphocytes (%) (Auto) 5 % (24-48) Monocytes (%) (Auto) 5 % (0-9) Eosinophils (%) (Auto) 1 % (0-3) Basophils (%) (Auto) 1 % (0-3) Neutrophils # (Auto) 15.9 x10^3/uL (1.8-7.7) Lymphocytes # (Auto) 0.9 x10^3/uL (1.0-4.8) Monocytes # (Auto) 0.8 x10^3/uL (0.0-1.1) Eosinophils # (Auto) 0.1 x10^3/uL (0.0-0.7) Basophils # (Auto) 0.1 x10^3/uL (0.0-0.2) Sodium Level 136 mmol/L (136-145) Potassium Level 3.6 mmol/L (3.5-5.1) Chloride Level 101 mmol/L (98-107) Carbon Dioxide Level 24 mmol/L (21-32) Anion Gap 11 (6-14) Blood Urea Nitrogen 75 mg/dL (7-20) Creatinine 3.0 mg/dL (0.6-1.0) Estimated GFR (Cockcroft-Gault) 15.3 BUN/Creatinine Ratio 25 (6-20) Glucose Level 100 mg/dL (70-99) Calcium Level 14.9 mg/dL (8.5-10.1) Phosphorus Level 5.7 mg/dL (2.6-4.7) Magnesium Level 1.6 mg/dL (1.8-2.4) Total Bilirubin 0.3 mg/dL (0.2-1.0) Aspartate Amino Transf (AST/SGOT) 76 U/L (15-37) Alanine Aminotransferase (ALT/SGPT) 16 U/L (14-59) Alkaline Phosphatase 118 U/L (46-116) Troponin I Quantitative 0.037 ng/mL (0.000-0.055) Total Protein 5.6 g/dL (6.4-8.2) Albumin 2.4 g/dL (3.4-5.0) Albumin/Globulin Ratio 0.8 (1.0-1.7) Lactic Acid Level 1.0 mmol/L (0.4-2.0) Medications Active Scripts Medications Dose Route/Sig Max Daily Dose Days Date Category Dose Instructions Hydrochlorothiazide Capsule (Hydrochlorothiazide) 12.5 Mg Capsule 12.5 Mg PO DAILY 04/07/20 Reported Miralax (Polyethylene Glycol 3350) 17 Gm Powd.pack 1 Packet PO DAILY 2 04/07/20 Reported dissolve in water Lisinopril 10 Mg Tablet 1 Tab PO DAILY 06/09/18 Rx Impression . Full note dictated, abnormal chest x-ray possible malignancy Continue treatment for pneumonia Consult nephrology for hypercalcemia , and renal failure GABRIELA ANDREWS MD Apr 07, 2020 15:27
--- NOTE | 2020-04-07 15:43 | CONS ---
DATE OF CONSULTATION: 04/07/2020 ATTENDING PHYSICIAN: Maurisio De La Cruz MD REASON FOR CONSULTATION: The patient is seen in pulmonary consultation at the request of Dr. De La Cruz for abnormal chest x-ray. HISTORY OF PRESENT ILLNESS: The patient is a 74-year-old with comorbidities of hypertension, COPD, smoking on a daily basis, presented with generalized weakness, some nausea and dry heaves. This has been ongoing now. She also has some lower back pain, cough productive of discolored sputum. No documented fever. No history of exposures to anybody with SARS-CoV-2. The patient had a chest x-ray, which revealed some chronic changes more than likely fibrosis. She also had volume loss in the right upper lobe. There is no chest x-ray for comparison. The patient presents, denies fever, chills, nausea, vomiting, no hemoptysis. PAST MEDICAL HISTORY: COPD, tobacco dependent, hypertension. PAST SURGICAL HISTORY: No recent major surgeries. SOCIAL HISTORY: She drinks every day. Smokes every day. FAMILY HISTORY: No family history of lung disorders. ALLERGIES: PENICILLIN. REVIEW OF SYSTEMS: CONSTITUTIONAL: As indicated above. EYES: No change in visual acuity. HEENT: No nasal congestion or sore throat. PULMONARY: As indicated above. CARDIOVASCULAR: No chest pain. No pressure. GASTROINTESTINAL: As indicated above. GENITOURINARY: No dysuria or frequency. MUSCULOSKELETAL: No localized muscle aches or joint pains. SKIN: No new skin rashes. NEUROLOGIC: No headaches, diplopia or blurred vision. CURRENT MEDICATION: List was reviewed. She is being treated with ceftriaxone, nebulized treatments. PHYSICAL EXAMINATION: VITAL SIGNS: Stable. O2 saturation was greater than 92%. Since admission, she has been afebrile. HEENT: Eyes, the sclerae were nonicteric. NECK: Jugular venous distention was not elevated. LUNGS: Diminished breath sounds throughout both lung rivera. CARDIOVASCULAR: Regular rate and rhythm with S1, S2, no S3. ABDOMEN: Soft, nontender, nondistended. BACK: Reveals severe scoliosis. EXTREMITIES: No clubbing, cyanosis or edema. LABORATORY DATA: Serology for COVID-19 was negative. Electrolytes were noted. BUN was elevated. Creatinine was elevated. Calcium level was elevated. AST was elevated. Albumin was low. Phosphorus was high. Total bilirubin was high. Chest x-ray as indicated above. IMPRESSION: 1. Abnormal x-ray, revealing some chronic changes, possibly volume loss in the right upper lobe. 2. Acute exacerbation of chronic obstructive pulmonary disease. 3. Possible pneumonia. 4. Acute on chronic renal failure. 5. Hypercalcemia. 6. Hypomagnesemia. 7. Chronic obstructive pulmonary disease, unknown FEV1. 8. Alcoholism. 9. Severe protein malnutrition, present upon admission. 10. SARS-CoV-2 negative. DISCUSSION: 1. The patient presents with complex medical decision making. She has a history of COPD, tobacco dependent. She now presents with abnormal chest x-ray and hypercalcemia. We will proceed with CT chest to rule out the possibility of malignancy. For now, recommend continue treatment for pneumonia. 2. We will consult Nephrology for acute on chronic renal failure and hypercalcemia. 3. Continue empiric antibiotics. 4. The patient instructed on the importance of discontinue use of tobacco and alcohol. 5. Consult dietitian for protein malnutrition. I do appreciate the privilege in sharing in the patient's care. GABRIELA ANDREWS MD DR: LATA/laci JOB#: [id number] / [id number]
--- NOTE | 2020-04-07 16:26 | NUR ---
SW following. Spoke with RN and reviewed chart. Pt from home with son and grandson. Pt COVID negative and on room air. Pt has had some weight loss per chart review. Spoke with son who reported discharge plan is for pt to return home. Pt's son agreeable to and would like a referral to [facility]. ROBBIE completed referral to Kateryna with [facility]. Patient Choice of Vendor form completed. ROBBIE following. Addendum: 04/08/20 at 1016 by CHARLIE AVALOS Pt transferred to . LATA Guallpa to follow.
[2020-04-07] MEDS: POLYETHYLENE GLYCOL 3350 17 GM PACKET. PO SCH (17:09)
[2020-04-07] MEDS: cefTRIAXone IV Push 1 GM VIAL. IVP SCH (20:26)
[2020-04-07] MEDS: AZITHROMYCIN 500 MG in IV NORMAL SALINE 250ML 250 ML IV SCH (20:26)
[2020-04-07] MEDS: LACTOBACILLUS RHAMNOSUS GG 1 CAPSULE. PO SCH (20:27)
[2020-04-07] MEDS: HEPARIN for SUB-Q USE 5,000 UNIT/ML VIAL. SQ SCH (20:30)
--- NOTE | 2020-04-07 23:00 | NUR ---
pt transferred to room 248 from 663 a/ox4. assessment complete, denies pain at this time, poc discussed, pt verbalized understanding, call light in place, will cont to monitor pt status and safety. pmrn
--- NOTE | 2020-04-07 23:30 | RAD ---
Examination: RENAL COMPLETE BILATERAL History: Reason: acute renal injury; Covid Pending / Comparison/Correlation: None Findings: Right kidney measures 8.8 cm x 4.7 cm x 3.9 cm. Left kidney measures 6.1 cm x 3.2 cm x 2.8 cm. No hydronephrosis. Kidneys are echogenic bilaterally. Small right renal cysts are present and do not require follow-up. Impression: Echogenic kidneys compatible with chronic medical renal disease. No hydronephrosis. Electronically signed by: Michael Toscano MD (04/07/2020 11:26 PM) [facility] [facility]
--- NOTE | 2020-04-07 23:32 | RAD ---
PQRS Compliance Statement: One or more of the following individualized dose reduction techniques were utilized for this examination: 1. Automated exposure control 2. Adjustment of the mA and/or kV according to patient size 3. Use of iterative reconstruction technique CT CHEST WO CONTRAST Clinical Indication: Reason: ABNORMAL CXR PNEUMONIA / Spl. Instructions: / History: Comparison: AP chest, prior day. TECHNIQUE: Helical CT imaging of the chest is performed without IV contrast. Findings: Left thyroid lobe is absent. Atherosclerotic thoracic aorta. Calcific aortic valve stenosis. Coronary artery disease. The great vessels are normal caliber. Cardiac size is normal, no pericardial effusion. There is irregular soft tissue density of the right cardiophrenic fat measuring approximately 2.7 cm. There are small bilateral pleural effusions, larger on the left. There is bulky AP window and left paratracheal and prevascular adenopathy that is partially calcified. Meera mass measures up to 8.1 cm AP by 5 cm transverse by 8.1 cm craniocaudal. There is anterior mediastinal soft tissue nodule measuring 1 cm, image 36. Identical in appearance to the meera mass there is a subpleural partially calcified nodule in the anterior left upper lobe measuring up to 1.6 cm AP by 3 cm transverse. There appears to be a second parenchymal mass in the medial left lung apex confluent with the mediastinal meera mass. This nodule measures 2.4 x 2.3 cm. There is a pleural-based nodule in the anterior right upper lobe measuring 5 mm, image 25. There is a lytic soft tissue mass of the right anterolateral fourth rib measuring approximately 2.1 x 1.2 cm. There is interlobular septal thickening in the anterior left upper lobe. There are several other subcentimeter subpleural nodules in the lingula. There are irregular soft tissue densities in the left upper abdomen in between the stomach and the spleen. Small lytic lesions of the right eighth rib are noted. There is probable pathologic fracture, image 37. There is also probable pathologic fracture of the left lateral seventh rib, image 39. There is mild lytic destruction of the T7 vertebral body. Small lytic lesion of the upper right sternum. There are lytic lesions of the T10 and T11 vertebral bodies. IMPRESSION: 1. There are lytic bone lesions suspicious for bone metastases. Pathologic rib fractures as noted above. 2. There is a bulky left mediastinal meera mass that is partially calcified. There are partially calcified lung nodules in the medial left lung apex and anterior left upper lobe. Primary consideration is lung malignancy given the other findings. Treated lymphoma or sarcoidosis are less likely considerations. 3. There are several small pleural-based nodules bilaterally suspicious for pleural metastases. 4. Small bilateral pleural effusions. 5. 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 6. There are irregular soft tissue densities in the left upper abdomen and right cardiophrenic fat, indeterminant. Electronically signed by: Kt Joseph MD (04/07/2020 11:29 PM) [facility]
[2020-04-08 00:07] LABS: CALCIUM PTH 14.6 mg/dL (8.7-10.3); CREATININE PTH 3.04 mg/dL (0.57-1.00); PHOSPHORUS PTH 5.6 mg/dL (3.0-4.3); PTH INTACT 277 pg/mL (15-65)
[2020-04-08 03:03] VITALS: BP 133/50
[2020-04-08 05:26] LABS: BASO % 0 % (0-3); EOS % 0 % (0-3); HEMOGLOBIN 9.7 g/dL (12.0-15.5); LYMPH # 0.5 x10^3/uL (1.0-4.8); LYMPH % 2 % (24-48); MEAN CORPUSCULAR HEMOGLOBIN 31 pg (25-35); MEAN CORPUSCULAR HGB CONC 32 g/dL (31-37); MEAN CORPUSCULAR VOLUME 94 fL (79-100); MONO # 0.9 x10^3/uL (0.0-1.1); MONO % 4 % (0-9); NEUT # 21.7 x10^3/uL (1.8-7.7); NEUT % 94 % (31-73); PLATELET COUNT 348 x10^3/uL (140-400); RED BLOOD COUNT 3.18 x10^6/uL (3.50-5.40); RED CELL DISTRIBUTION WIDTH 13.8 % (11.5-14.5); WHITE BLOOD COUNT 23.1 x10^3/uL (4.0-11.0)
[2020-04-08 05:42] LABS: ALBUMIN/GLOBULIN RATIO 0.5 (1.0-1.7); CREATININE 2.7 mg/dL (0.6-1.0); GFR 17.2; POTASSIUM 3.3 mmol/L (3.5-5.1); TOTAL BILIRUBIN 0.3 mg/dL (0.2-1.0); TOTAL PROTEIN 5.7 g/dL (6.4-8.2)
[2020-04-08 05:46] LABS: CALCIUM 14.7 mg/dL (8.5-10.1)
[2020-04-08 07:00] VITALS: BP 127/54
--- NOTE | 2020-04-08 07:25 | NUR ---
DR PAGAN NOTIFIED OF CRITICAL CALCIUM RESULTS AND RESULTS OF CT CHEST NEW ORDERS RECEIVED. WILL CONT TO MONITOR PT STATUS AND SAFETY. PMRN
[2020-04-08] MEDS: LACTOBACILLUS RHAMNOSUS GG 1 CAPSULE. PO SCH ×2 (08:03→23:00)
[2020-04-08] MEDS: POLYETHYLENE GLYCOL 3350 17 GM PACKET. PO SCH (08:03)
--- NOTE | 2020-04-08 08:42 | PDOC ---
PULMONARY PROGRESS NOTES DATE: 04/08/20 TIME: 08:42 Subjective Patient awake alert following commands no new complaint Vitals Vital Signs Date Time Temp Pulse Resp B/P (MAP) Pulse Ox O2 Delivery O2 Flow Rate FiO2 04/08/20 07:00 97.4 122 16 127/54 (78) 99 Nasal Cannula 2.0 97.4 ROS: No Chest Pain, No Abdominal Pain, No Increase Cough General: Alert Lungs: Clear Cardiovascular: S1, S2 Abdomen: Soft Neuro Exam: Alert Extremities: No Edema Skin: Warm Labs Laboratory Tests Test 04/06/20 20:20 04/06/20 22:00 04/06/20 22:05 04/06/20 23:38 White Blood Count 16.9 x10^3/uL (4.0-11.0) Red Blood Count 3.47 x10^6/uL (3.50-5.40) Hemoglobin 10.8 g/dL (12.0-15.5) Hematocrit 32.1 % (36.0-47.0) Mean Corpuscular Volume 92 fL (79-100) Mean Corpuscular Hemoglobin 31 pg (25-35) Mean Corpuscular Hemoglobin Concent 34 g/dL (31-37) Red Cell Distribution Width 13.4 % (11.5-14.5) Platelet Count 366 x10^3/uL (140-400) Neutrophils (%) (Auto) 89 % (31-73) Lymphocytes (%) (Auto) 5 % (24-48) Monocytes (%) (Auto) 5 % (0-9) Eosinophils (%) (Auto) 1 % (0-3) Basophils (%) (Auto) 0 % (0-3) Neutrophils # (Auto) 15.0 x10^3/uL (1.8-7.7) Lymphocytes # (Auto) 0.9 x10^3/uL (1.0-4.8) Monocytes # (Auto) 0.8 x10^3/uL (0.0-1.1) Eosinophils # (Auto) 0.1 x10^3/uL (0.0-0.7) Basophils # (Auto) 0.1 x10^3/uL (0.0-0.2) Segmented Neutrophils % 86 % (35-66) Band Neutrophils % 2 % (0-9) Lymphocytes % 7 % (24-48) Monocytes % 4 % (0-10) Metamyelocytes % 1 % (0-0) Toxic Granulation Slight Platelet Estimate Adequate (ADEQUATE) Prothrombin Time 14.5 SEC (11.7-14.0) Prothromb Time International Ratio 1.2 (0.8-1.1) Activated Partial Thromboplast Time 22 SEC (24-38) Sodium Level 133 mmol/L (136-145) Potassium Level 3.6 mmol/L (3.5-5.1) Chloride Level 97 mmol/L (98-107) Carbon Dioxide Level 27 mmol/L (21-32) Anion Gap 9 (6-14) Blood Urea Nitrogen 77 mg/dL (7-20) Creatinine 3.2 mg/dL (0.6-1.0) Estimated GFR (Cockcroft-Gault) 14.2 BUN/Creatinine Ratio 24 (6-20) Glucose Level 128 mg/dL (70-99) Calcium Level 15.5 mg/dL (8.5-10.1) Total Bilirubin 0.3 mg/dL (0.2-1.0) Aspartate Amino Transf (AST/SGOT) 87 U/L (15-37) Alanine Aminotransferase (ALT/SGPT) 19 U/L (14-59) Alkaline Phosphatase 132 U/L (46-116) Troponin I Quantitative 0.035 ng/mL (0.000-0.055) 0.023 ng/mL (0.000-0.055) Total Protein 6.9 g/dL (6.4-8.2) Albumin 2.6 g/dL (3.4-5.0) Albumin/Globulin Ratio 0.6 (1.0-1.7) 25-Hydroxy Vitamin D Total 33.0 ng/mL (30-100) Urine Collection Type Void Urine Color Yellow Urine Clarity Cloudy Urine pH 5.5 (<5.0-8.0) Urine Specific [place] 1.010 (1.000-1.030) Urine Protein Negative mg/dL (NEG-TRACE) Urine Glucose (UA) Negative mg/dL (NEG) Urine Ketones (Stick) Negative mg/dL (NEG) Urine Blood Negative (NEG) Urine Nitrite Negative (NEG) Urine Bilirubin Negative (NEG) Urine Urobilinogen Dipstick 0.2 mg/dL (0.2 mg/dL) Urine Leukocyte Esterase Large (NEG) Urine RBC Rare /HPF (0-2) Urine WBC 11-20 /HPF (0-4) Urine Squamous Epithelial Cells Many /LPF Urine Bacteria Many /HPF (0-FEW) Coronavirus (PCR) Not detected (Not Detected) Estimated GFR (Non- 15 (>59) EGFR 17 (>59) PTH (Intact) Specimen Description Comment (.) Parathyroid Hormone (Intact) 277 pg/mL (15-65) Calcium (PTH Intact) 14.6 mg/dL (8.7-10.3) Creatinine (PTH Intact) 3.04 mg/dL (0.57-1.00) Phosphorus (PTH Intact) 5.6 mg/dL (3.0-4.3) Test 04/07/20 03:25 04/07/20 05:17 04/08/20 05:00 White Blood Count 17.9 x10^3/uL (4.0-11.0) 23.1 x10^3/uL (4.0-11.0) Red Blood Count 3.30 x10^6/uL (3.50-5.40) 3.18 x10^6/uL (3.50-5.40) Hemoglobin 10.1 g/dL (12.0-15.5) 9.7 g/dL (12.0-15.5) Hematocrit 30.7 % (36.0-47.0) 30.0 % (36.0-47.0) Mean Corpuscular Volume 93 fL (79-100) 94 fL (79-100) Mean Corpuscular Hemoglobin 31 pg (25-35) 31 pg (25-35) Mean Corpuscular Hemoglobin Concent 33 g/dL (31-37) 32 g/dL (31-37) Red Cell Distribution Width 13.7 % (11.5-14.5) 13.8 % (11.5-14.5) Platelet Count 356 x10^3/uL (140-400) 348 x10^3/uL (140-400) Neutrophils (%) (Auto) 89 % (31-73) 94 % (31-73) Lymphocytes (%) (Auto) 5 % (24-48) 2 % (24-48) Monocytes (%) (Auto) 5 % (0-9) 4 % (0-9) Eosinophils (%) (Auto) 1 % (0-3) 0 % (0-3) Basophils (%) (Auto) 1 % (0-3) 0 % (0-3) Neutrophils # (Auto) 15.9 x10^3/uL (1.8-7.7) 21.7 x10^3/uL (1.8-7.7) Lymphocytes # (Auto) 0.9 x10^3/uL (1.0-4.8) 0.5 x10^3/uL (1.0-4.8) Monocytes # (Auto) 0.8 x10^3/uL (0.0-1.1) 0.9 x10^3/uL (0.0-1.1) Eosinophils # (Auto) 0.1 x10^3/uL (0.0-0.7) 0.0 x10^3/uL (0.0-0.7) Basophils # (Auto) 0.1 x10^3/uL (0.0-0.2) 0.0 x10^3/uL (0.0-0.2) Sodium Level 136 mmol/L (136-145) 139 mmol/L (136-145) Potassium Level 3.6 mmol/L (3.5-5.1) 3.3 mmol/L (3.5-5.1) Chloride Level 101 mmol/L (98-107) 105 mmol/L (98-107) Carbon Dioxide Level 24 mmol/L (21-32) 23 mmol/L (21-32) Anion Gap 11 (6-14) 11 (6-14) Blood Urea Nitrogen 75 mg/dL (7-20) 70 mg/dL (7-20) Creatinine 3.0 mg/dL (0.6-1.0) 2.7 mg/dL (0.6-1.0) Estimated GFR (Cockcroft-Gault) 15.3 17.2 BUN/Creatinine Ratio 25 (6-20) 26 (6-20) Glucose Level 100 mg/dL (70-99) 79 mg/dL (70-99) Calcium Level 14.9 mg/dL (8.5-10.1) 14.7 mg/dL (8.5-10.1) Phosphorus Level 5.7 mg/dL (2.6-4.7) Magnesium Level 1.6 mg/dL (1.8-2.4) Total Bilirubin 0.3 mg/dL (0.2-1.0) 0.3 mg/dL (0.2-1.0) Aspartate Amino Transf (AST/SGOT) 76 U/L (15-37) 88 U/L (15-37) Alanine Aminotransferase (ALT/SGPT) 16 U/L (14-59) 17 U/L (14-59) Alkaline Phosphatase 118 U/L (46-116) 104 U/L (46-116) Troponin I Quantitative 0.037 ng/mL (0.000-0.055) Total Protein 5.6 g/dL (6.4-8.2) 5.7 g/dL (6.4-8.2) Albumin 2.4 g/dL (3.4-5.0) 2.0 g/dL (3.4-5.0) Albumin/Globulin Ratio 0.8 (1.0-1.7) 0.5 (1.0-1.7) Lactic Acid Level 1.0 mmol/L (0.4-2.0) Laboratory Tests Test 04/08/20 05:00 White Blood Count 23.1 x10^3/uL (4.0-11.0) Red Blood Count 3.18 x10^6/uL (3.50-5.40) Hemoglobin 9.7 g/dL (12.0-15.5) Hematocrit 30.0 % (36.0-47.0) Mean Corpuscular Volume 94 fL (79-100) Mean Corpuscular Hemoglobin 31 pg (25-35) Mean Corpuscular Hemoglobin Concent 32 g/dL (31-37) Red Cell Distribution Width 13.8 % (11.5-14.5) Platelet Count 348 x10^3/uL (140-400) Neutrophils (%) (Auto) 94 % (31-73) Lymphocytes (%) (Auto) 2 % (24-48) Monocytes (%) (Auto) 4 % (0-9) Eosinophils (%) (Auto) 0 % (0-3) Basophils (%) (Auto) 0 % (0-3) Neutrophils # (Auto) 21.7 x10^3/uL (1.8-7.7) Lymphocytes # (Auto) 0.5 x10^3/uL (1.0-4.8) Monocytes # (Auto) 0.9 x10^3/uL (0.0-1.1) Eosinophils # (Auto) 0.0 x10^3/uL (0.0-0.7) Basophils # (Auto) 0.0 x10^3/uL (0.0-0.2) Sodium Level 139 mmol/L (136-145) Potassium Level 3.3 mmol/L (3.5-5.1) Chloride Level 105 mmol/L (98-107) Carbon Dioxide Level 23 mmol/L (21-32) Anion Gap 11 (6-14) Blood Urea Nitrogen 70 mg/dL (7-20) Creatinine 2.7 mg/dL (0.6-1.0) Estimated GFR (Cockcroft-Gault) 17.2 BUN/Creatinine Ratio 26 (6-20) Glucose Level 79 mg/dL (70-99) Calcium Level 14.7 mg/dL (8.5-10.1) Total Bilirubin 0.3 mg/dL (0.2-1.0) Aspartate Amino Transf (AST/SGOT) 88 U/L (15-37) Alanine Aminotransferase (ALT/SGPT) 17 U/L (14-59) Alkaline Phosphatase 104 U/L (46-116) Total Protein 5.7 g/dL (6.4-8.2) Albumin 2.0 g/dL (3.4-5.0) Albumin/Globulin Ratio 0.5 (1.0-1.7) Medications Active Scripts Medications Dose Route/Sig Max Daily Dose Days Date Category Dose Instructions Hydrochlorothiazide Capsule (Hydrochlorothiazide) 12.5 Mg Capsule 12.5 Mg PO DAILY 04/07/20 Reported Miralax (Polyethylene Glycol 3350) 17 Gm Powd.pack 1 Packet PO DAILY 2 04/07/20 Reported dissolve in water Lisinopril 10 Mg Tablet 1 Tab PO DAILY 06/09/18 Rx Impression . IMPRESSION: 1. Abnormal x-ray, revealing some chronic changes, possibly volume loss in the right upper lobe.SEE CT REPORT 2. Acute exacerbation of chronic obstructive pulmonary disease. 3. Possible pneumonia. 4. Acute on chronic renal failure. 5. Hypercalcemia. 6. Hypomagnesemia. 7. Chronic obstructive pulmonary disease, unknown FEV1. 8. Alcoholism. 9. Severe protein malnutrition, present upon admission. 10. SARS-CoV-[address] CEST IMPRESSION: 1. There are lytic bone lesions suspicious for bone metastases. Pathologic rib fractures as noted above. 2. There is a bulky left mediastinal ronald mass that is partially calcified. There are partially calcified lung nodules in the medial left lung apex and anterior left upper lobe. Primary consideration is lung malignancy given the other findings. Treated lymphoma or sarcoidosis are less likely considerations. 3. There are several small pleural-based nodules bilaterally suspicious for pleural metastases. 4. Small bilateral pleural effusions. 5. 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 6. There are irregular soft tissue densities in the left upper abdomen and right cardiophrenic fat, indeterminant. Plan . CT report was relayed to the patient and son at the bedside I recommend biopsy, discussed with Dr. Mcbride, bone lesion biopsy Patient declined to undergo biopsy for now Appreciate Dr. Tatum input Awaiting oncology input For now continue empiric antibiotics Son at the bedside, I gave him my business card, patient will think about the possibility of performing a biopsy. I did inform the patient and son that I think this is more or less a malignant process. GABRIELA ANDREWS MD Apr 08, 2020 08:42
[2020-04-08 11:00] VITALS: BP 130/57
[2020-04-08] MEDS: IV NORMAL SALINE 1000ML BAG 1,000 ML IV SCH ×2 (12:44→23:11)
--- NOTE | 2020-04-08 12:45 | NUR ---
SS following for discharge planning. SS reviewed pt chart and discussed with pt RN. Pt is from home with family and is currently requiring oxygen. Pt on IV Azithromycin and IV Rocephin. COVID19 negative. PT/OT recommended retirement unit. Hematology consulted for suspicion of cancer. SS will continue to follow for discharge planning.
--- NOTE | 2020-04-08 14:15 | PDOC ---
PROGRESS NOTES Date of Service: DATE: 04/08/20 TIME: 14:10 Chief Complaint Chief Complaint Generalized weakness, given results of imaging studies, high suspicion for underlying malignancy. Acute exacerbation of chronic obstructive pulmonary disease. Community acquired pneumonia.? Acute on chronic renal failure. Hypercalcemia. Malignancy related, Multiple myeloma a possibility given lytic lesions on imaging studies. Hypomagnesemia. History of alcohol abuse Severe protein malnutrition, present upon admission. SARS-CoV-2 negative. Plan: follow recommendations from Nephrology and Pulm construction safety consultant will consult oncology will order spep and upep reassess in the am History of Present Illness History of Present Illness SEEN IN ER WITH WEAKNESS , 74 year old female with past medical history of hypertension and COPD daily smoker presents with a chief complaint of generalized weakness associated with nausea and vomiting since the beginning of February. Patient states nausea and vomiting have been going on and off since onset. Patient states weakness has progressively become worse. Patient has occasional cough with sputum production which she states is chronic. She denies any fever chills chest pain or shortness of breath. CR NOW IN 3 RANGE, C/O BACK PAIN, 15 LB RECENT WEIGHT LOSS, Nephrology consulted, uti likely 04/08/2020 Patient feeling better she relates to me that she has had hypercalcemia for a long time now. Patient was given results of her imaging studies and the suspicion for malignancy She seems more interested in going home Vitals Vitals Vital Signs Date Time Temp Pulse Resp B/P (MAP) Pulse Ox O2 Delivery O2 Flow Rate FiO2 04/08/20 11:00 97.6 117 16 130/57 (81) 98 Nasal Cannula 2.0 97.6 Physical Exam General: Alert, Oriented X3, Cooperative Heart: Regular rate, Normal S1, Normal S2 Lungs: Wheezing Abdomen: Normal bowel sounds, Soft, No tenderness Extremities: No cyanosis Labs LABS Laboratory Tests Test 04/08/20 05:00 White Blood Count 23.1 x10^3/uL (4.0-11.0) Red Blood Count 3.18 x10^6/uL (3.50-5.40) Hemoglobin 9.7 g/dL (12.0-15.5) Hematocrit 30.0 % (36.0-47.0) Mean Corpuscular Volume 94 fL (79-100) Mean Corpuscular Hemoglobin 31 pg (25-35) Mean Corpuscular Hemoglobin Concent 32 g/dL (31-37) Red Cell Distribution Width 13.8 % (11.5-14.5) Platelet Count 348 x10^3/uL (140-400) Neutrophils (%) (Auto) 94 % (31-73) Lymphocytes (%) (Auto) 2 % (24-48) Monocytes (%) (Auto) 4 % (0-9) Eosinophils (%) (Auto) 0 % (0-3) Basophils (%) (Auto) 0 % (0-3) Neutrophils # (Auto) 21.7 x10^3/uL (1.8-7.7) Lymphocytes # (Auto) 0.5 x10^3/uL (1.0-4.8) Monocytes # (Auto) 0.9 x10^3/uL (0.0-1.1) Eosinophils # (Auto) 0.0 x10^3/uL (0.0-0.7) Basophils # (Auto) 0.0 x10^3/uL (0.0-0.2) Sodium Level 139 mmol/L (136-145) Potassium Level 3.3 mmol/L (3.5-5.1) Chloride Level 105 mmol/L (98-107) Carbon Dioxide Level 23 mmol/L (21-32) Anion Gap 11 (6-14) Blood Urea Nitrogen 70 mg/dL (7-20) Creatinine 2.7 mg/dL (0.6-1.0) Estimated GFR (Cockcroft-Gault) 17.2 BUN/Creatinine Ratio 26 (6-20) Glucose Level 79 mg/dL (70-99) Calcium Level 14.7 mg/dL (8.5-10.1) Total Bilirubin 0.3 mg/dL (0.2-1.0) Aspartate Amino Transf (AST/SGOT) 88 U/L (15-37) Alanine Aminotransferase (ALT/SGPT) 17 U/L (14-59) Alkaline Phosphatase 104 U/L (46-116) Total Protein 5.7 g/dL (6.4-8.2) Albumin 2.0 g/dL (3.4-5.0) Albumin/Globulin Ratio 0.5 (1.0-1.7) Assessment and Plan Assessmemt and Plan Problems Medical Problems: (1) Hypercalcemia Status: Acute (2) Person under investigation for COVID-19 Status: Acute Comment Review of Relevant I have reviewed the following items luke (where applicable) has been applied. Labs Laboratory Tests Test 04/06/20 20:20 04/06/20 22:00 04/06/20 22:05 04/06/20 23:38 White Blood Count 16.9 x10^3/uL (4.0-11.0) Red Blood Count 3.47 x10^6/uL (3.50-5.40) Hemoglobin 10.8 g/dL (12.0-15.5) Hematocrit 32.1 % (36.0-47.0) Mean Corpuscular Volume 92 fL (79-100) Mean Corpuscular Hemoglobin 31 pg (25-35) Mean Corpuscular Hemoglobin Concent 34 g/dL (31-37) Red Cell Distribution Width 13.4 % (11.5-14.5) Platelet Count 366 x10^3/uL (140-400) Neutrophils (%) (Auto) 89 % (31-73) Lymphocytes (%) (Auto) 5 % (24-48) Monocytes (%) (Auto) 5 % (0-9) Eosinophils (%) (Auto) 1 % (0-3) Basophils (%) (Auto) 0 % (0-3) Neutrophils # (Auto) 15.0 x10^3/uL (1.8-7.7) Lymphocytes # (Auto) 0.9 x10^3/uL (1.0-4.8) Monocytes # (Auto) 0.8 x10^3/uL (0.0-1.1) Eosinophils # (Auto) 0.1 x10^3/uL (0.0-0.7) Basophils # (Auto) 0.1 x10^3/uL (0.0-0.2) Segmented Neutrophils % 86 % (35-66) Band Neutrophils % 2 % (0-9) Lymphocytes % 7 % (24-48) Monocytes % 4 % (0-10) Metamyelocytes % 1 % (0-0) Toxic Granulation Slight Platelet Estimate Adequate (ADEQUATE) Prothrombin Time 14.5 SEC (11.7-14.0) Prothromb Time International Ratio 1.2 (0.8-1.1) Activated Partial Thromboplast Time 22 SEC (24-38) Sodium Level 133 mmol/L (136-145) Potassium Level 3.6 mmol/L (3.5-5.1) Chloride Level 97 mmol/L (98-107) Carbon Dioxide Level 27 mmol/L (21-32) Anion Gap 9 (6-14) Blood Urea Nitrogen 77 mg/dL (7-20) Creatinine 3.2 mg/dL (0.6-1.0) Estimated GFR (Cockcroft-Gault) 14.2 BUN/Creatinine Ratio 24 (6-20) Glucose Level 128 mg/dL (70-99) Calcium Level 15.5 mg/dL (8.5-10.1) Total Bilirubin 0.3 mg/dL (0.2-1.0) Aspartate Amino Transf (AST/SGOT) 87 U/L (15-37) Alanine Aminotransferase (ALT/SGPT) 19 U/L (14-59) Alkaline Phosphatase 132 U/L (46-116) Troponin I Quantitative 0.035 ng/mL (0.000-0.055) 0.023 ng/mL (0.000-0.055) Total Protein 6.9 g/dL (6.4-8.2) Albumin 2.6 g/dL (3.4-5.0) Albumin/Globulin Ratio 0.6 (1.0-1.7) 25-Hydroxy Vitamin D Total 33.0 ng/mL (30-100) Urine Collection Type Void Urine Color Yellow Urine Clarity Cloudy Urine pH 5.5 (<5.0-8.0) Urine Specific [place] 1.010 (1.000-1.030) Urine Protein Negative mg/dL (NEG-TRACE) Urine Glucose (UA) Negative mg/dL (NEG) Urine Ketones (Stick) Negative mg/dL (NEG) Urine Blood Negative (NEG) Urine Nitrite Negative (NEG) Urine Bilirubin Negative (NEG) Urine Urobilinogen Dipstick 0.2 mg/dL (0.2 mg/dL) Urine Leukocyte Esterase Large (NEG) Urine RBC Rare /HPF (0-2) Urine WBC 11-20 /HPF (0-4) Urine Squamous Epithelial Cells Many /LPF Urine Bacteria Many /HPF (0-FEW) Coronavirus (PCR) Not detected (Not Detected) Estimated GFR (Non- 15 (>59) EGFR 17 (>59) PTH (Intact) Specimen Description Comment (.) Parathyroid Hormone (Intact) 277 pg/mL (15-65) Calcium (PTH Intact) 14.6 mg/dL (8.7-10.3) Creatinine (PTH Intact) 3.04 mg/dL (0.57-1.00) Phosphorus (PTH Intact) 5.6 mg/dL (3.0-4.3) Test 04/07/20 03:25 04/07/20 05:17 04/08/20 05:00 White Blood Count 17.9 x10^3/uL (4.0-11.0) 23.1 x10^3/uL (4.0-11.0) Red Blood Count 3.30 x10^6/uL (3.50-5.40) 3.18 x10^6/uL (3.50-5.40) Hemoglobin 10.1 g/dL (12.0-15.5) 9.7 g/dL (12.0-15.5) Hematocrit 30.7 % (36.0-47.0) 30.0 % (36.0-47.0) Mean Corpuscular Volume 93 fL (79-100) 94 fL (79-100) Mean Corpuscular Hemoglobin 31 pg (25-35) 31 pg (25-35) Mean Corpuscular Hemoglobin Concent 33 g/dL (31-37) 32 g/dL (31-37) Red Cell Distribution Width 13.7 % (11.5-14.5) 13.8 % (11.5-14.5) Platelet Count 356 x10^3/uL (140-400) 348 x10^3/uL (140-400) Neutrophils (%) (Auto) 89 % (31-73) 94 % (31-73) Lymphocytes (%) (Auto) 5 % (24-48) 2 % (24-48) Monocytes (%) (Auto) 5 % (0-9) 4 % (0-9) Eosinophils (%) (Auto) 1 % (0-3) 0 % (0-3) Basophils (%) (Auto) 1 % (0-3) 0 % (0-3) Neutrophils # (Auto) 15.9 x10^3/uL (1.8-7.7) 21.7 x10^3/uL (1.8-7.7) Lymphocytes # (Auto) 0.9 x10^3/uL (1.0-4.8) 0.5 x10^3/uL (1.0-4.8) Monocytes # (Auto) 0.8 x10^3/uL (0.0-1.1) 0.9 x10^3/uL (0.0-1.1) Eosinophils # (Auto) 0.1 x10^3/uL (0.0-0.7) 0.0 x10^3/uL (0.0-0.7) Basophils # (Auto) 0.1 x10^3/uL (0.0-0.2) 0.0 x10^3/uL (0.0-0.2) Sodium Level 136 mmol/L (136-145) 139 mmol/L (136-145) Potassium Level 3.6 mmol/L (3.5-5.1) 3.3 mmol/L (3.5-5.1) Chloride Level 101 mmol/L (98-107) 105 mmol/L (98-107) Carbon Dioxide Level 24 mmol/L (21-32) 23 mmol/L (21-32) Anion Gap 11 (6-14) 11 (6-14) Blood Urea Nitrogen 75 mg/dL (7-20) 70 mg/dL (7-20) Creatinine 3.0 mg/dL (0.6-1.0) 2.7 mg/dL (0.6-1.0) Estimated GFR (Cockcroft-Gault) 15.3 17.2 BUN/Creatinine Ratio 25 (6-20) 26 (6-20) Glucose Level 100 mg/dL (70-99) 79 mg/dL (70-99) Calcium Level 14.9 mg/dL (8.5-10.1) 14.7 mg/dL (8.5-10.1) Phosphorus Level 5.7 mg/dL (2.6-4.7) Magnesium Level 1.6 mg/dL (1.8-2.4) Total Bilirubin 0.3 mg/dL (0.2-1.0) 0.3 mg/dL (0.2-1.0) Aspartate Amino Transf (AST/SGOT) 76 U/L (15-37) 88 U/L (15-37) Alanine Aminotransferase (ALT/SGPT) 16 U/L (14-59) 17 U/L (14-59) Alkaline Phosphatase 118 U/L (46-116) 104 U/L (46-116) Troponin I Quantitative 0.037 ng/mL (0.000-0.055) Total Protein 5.6 g/dL (6.4-8.2) 5.7 g/dL (6.4-8.2) Albumin 2.4 g/dL (3.4-5.0) 2.0 g/dL (3.4-5.0) Albumin/Globulin Ratio 0.8 (1.0-1.7) 0.5 (1.0-1.7) Lactic Acid Level 1.0 mmol/L (0.4-2.0) Laboratory Tests Test 04/08/20 05:00 White Blood Count 23.1 x10^3/uL (4.0-11.0) Red Blood Count 3.18 x10^6/uL (3.50-5.40) Hemoglobin 9.7 g/dL (12.0-15.5) Hematocrit 30.0 % (36.0-47.0) Mean Corpuscular Volume 94 fL (79-100) Mean Corpuscular Hemoglobin 31 pg (25-35) Mean Corpuscular Hemoglobin Concent 32 g/dL (31-37) Red Cell Distribution Width 13.8 % (11.5-14.5) Platelet Count 348 x10^3/uL (140-400) Neutrophils (%) (Auto) 94 % (31-73) Lymphocytes (%) (Auto) 2 % (24-48) Monocytes (%) (Auto) 4 % (0-9) Eosinophils (%) (Auto) 0 % (0-3) Basophils (%) (Auto) 0 % (0-3) Neutrophils # (Auto) 21.7 x10^3/uL (1.8-7.7) Lymphocytes # (Auto) 0.5 x10^3/uL (1.0-4.8) Monocytes # (Auto) 0.9 x10^3/uL (0.0-1.1) Eosinophils # (Auto) 0.0 x10^3/uL (0.0-0.7) Basophils # (Auto) 0.0 x10^3/uL (0.0-0.2) Sodium Level 139 mmol/L (136-145) Potassium Level 3.3 mmol/L (3.5-5.1) Chloride Level 105 mmol/L (98-107) Carbon Dioxide Level 23 mmol/L (21-32) Anion Gap 11 (6-14) Blood Urea Nitrogen 70 mg/dL (7-20) Creatinine 2.7 mg/dL (0.6-1.0) Estimated GFR (Cockcroft-Gault) 17.2 BUN/Creatinine Ratio 26 (6-20) Glucose Level 79 mg/dL (70-99) Calcium Level 14.7 mg/dL (8.5-10.1) Total Bilirubin 0.3 mg/dL (0.2-1.0) Aspartate Amino Transf (AST/SGOT) 88 U/L (15-37) Alanine Aminotransferase (ALT/SGPT) 17 U/L (14-59) Alkaline Phosphatase 104 U/L (46-116) Total Protein 5.7 g/dL (6.4-8.2) Albumin 2.0 g/dL (3.4-5.0) Albumin/Globulin Ratio 0.5 (1.0-1.7) Microbiology 04/07/20 Blood Culture - Preliminary, Resulted NO GROWTH AFTER 1 DAY 04/06/20 Urine Culture - Final, Complete Medications Current Medications Sodium Chloride 1,000 ml @ 1,000 mls/hr 1X ONCE IV Last administered on 04/06/20at 21:37; Start 04/06/20 at 20:15; Stop 04/06/20 at 21:14; Status DC Sodium Chloride 1,000 ml @ 1,000 mls/hr 1X ONCE IV Last administered on 04/06/20at 01:00; Start 04/06/20 at 21:30; Stop 04/06/20 at 22:29; Status DC Ceftriaxone Sodium (Rocephin) 1 gm 1X ONCE IVP Last administered on 04/06/20at 21:36; Start 04/06/20 at 21:30; Stop 04/06/20 at 21:31; Status DC Azithromycin (Zithromax) 500 mg 1X ONCE PO Last administered on 04/06/20at 21:35; Start 04/06/20 at 21:30; Stop 04/06/20 at 21:31; Status DC Ondansetron HCl (Zofran) 4 mg PRN Q8HRS PRN IV NAUSEA/VOMITING Last administered on 04/07/20at 20:26; Start 04/06/20 at 21:45; Stop 04/07/20 at 21:44; Status DC Sennosides (Senna) 17.2 mg PRN BID PRN PO CONSTIPATION Last administered on 04/07at 09:24; Start 04/06/20 at 21:45 Docusate Sodium (Colace) 100 mg PRN DAILY PRN PO HARD STOOLS Last administered on 04/07/20at 09:24; Start 04/06/20 at 21:45 Ondansetron HCl (Zofran) 4 mg PRN Q6HRS PRN IVP NAUSEA/VOMITING; Start 04/06/20 at 21:45 Albuterol/ Ipratropium (Duoneb) 3 ml RTQID NEB ; Start 04/07/20 at 08:00; Stop 04/06/20 at 22:04; Status DC Potassium Chloride (Klor-Con) 40 meq 1X PRN PO PER PROTOCOL; Start 04/06/20 at 21:45 Magnesium Oxide (Magnesium Oxide) 400 mg PRN BID PRN PO SEE PARAMETER; Start 04/07/20 at 09:00 Potassium Chloride/Water 100 ml @ 100 mls/hr PRN Q1HR PRN IV SEE PARAMETER; Start 04/06/20 at 21:45 Magnesium Sulfate 50 ml @ 25 mls/hr PRN Q24HRS PRN IV SEE PARAMETER; Start 04/06/20 at 21:45 Potassium Chloride/Water 100 ml @ 100 mls/hr PRN Q1HR PRN IV low k; Start 04/06/20 at 21:45 Dextrose (Dextrose 50%-Water Syringe) 12.5 gm PRN Q15MIN PRN IV SEE COMMENTS; Start 04/06/20 at 21:45 Sodium Chloride 1,000 ml @ 100 mls/hr Q10H IV Last administered on 04/08/20at 12:44; Start 04/06/20 at 21:33 Acetaminophen (Tylenol) 650 mg PRN Q4HRS PRN PO TEMP OVER 100.4F OR MILD PAIN Last administered on 04/07/20at 09:24; Start 04/06/20 at 21:45 Albuterol/ Ipratropium (Duoneb) 3 ml Q4HRS W/A NEB ; Start 04/06/20 at 22:00; Stop 04/07/20 at 01:16; Status DC Heparin Sodium (Porcine) (Heparin Sodium) 5,000 unit Q12HR SQ Last administered on 04/07/20at 09:25; Start 04/07/20 at 09:00; Stop 04/07/20 at 15:34; Status DC Ceftriaxone Sodium (Rocephin) 1 gm Q24H IVP Last administered on 04/07/20at 20:26; Start 04/07/20 at 21:00 Azithromycin 500 mg/Sodium Chloride 250 ml @ 250 mls/hr Q24H IV Last administered on 04/07/20at 20:26; Start 04/07/20 at 21:00 Sodium Chloride 1,000 ml @ 125 mls/hr 1X ONCE IV Last administered on 04/06/20at 00:43; Start 04/06/20 at 22:15; Stop 04/07/20 at 06:14; Status DC Albuterol/ Ipratropium (Duoneb) 3 ml PRN Q4HRS NEB ; Start 04/07/20 at 22:00 Lactobacillus Rhamnosus (Culturelle) 1 cap BID PO Last administered on 04/08/20at 08:03; Start 04/07/20 at 21:00 Acetaminophen/ Hydrocodone Bitart (Lortab 5/325) 1 tab PRN Q6HRS PRN PO MODERATE - SEVERE PAIN Last administered on 04/07/20at 15:22; Start 04/07/20 at 15:15 Polyethylene Glycol (miraLAX PACKET) 17 gm DAILY PO Last administered on 04/08/20at 08:03; Start 04/07/20 at 16:00 Heparin Sodium (Porcine) (Heparin Sodium) 5,000 unit Q8HRS SQ Last administered on 04/07/20at 20:30; Start 04/07/20 at 22:00 Active Scripts Active Lisinopril 10 Mg Tablet 1 Tab PO DAILY Reported Hydrochlorothiazide Capsule (Hydrochlorothiazide) 12.5 Mg Capsule 12.5 Mg PO DAILY Miralax (Polyethylene Glycol 3350) 17 Gm Powd.pack 1 Packet PO DAILY 2 Days dissolve in water Vitals/I & O Vital Sign - Last 24 Hours 04/07/20 04/07/20 04/07/20 04/07/20 15:22 15:24 17:05 19:00 Temp 98.3 97.7 98.3 97.7 Pulse 99 125 Resp 24 18 B/P (MAP) 144/72 (96) 129/61 (83) Pulse Ox 92 94 94 93 O2 Delivery Room Air Room Air Room Air Room Air 04/07/20 04/07/20 04/07/20 04/08/20 20:00 23:00 23:41 03:03 Temp 97.7 97.8 97.7 97.8 Pulse 124 116 Resp 19 19 B/P (MAP) 142/67 (92) 133/50 (77) Pulse Ox 99 98 O2 Delivery Room Air Nasal Cannula Nasal Cannula Nasal Cannula O2 Flow Rate 2.0 2.0 2.0 04/08/20 04/08/20 04/08/20 07:00 08:00 11:00 Temp 97.4 97.6 97.4 97.6 Pulse 122 117 Resp 16 16 B/P (MAP) 127/54 (78) 130/57 (81) Pulse Ox 99 98 O2 Delivery Nasal Cannula Nasal Cannula Nasal Cannula O2 Flow Rate 2.0 2.0 2.0 Intake and Output 04/07/20 04/07/20 04/08/20 15:00 23:00 07:00 Intake Total 300 ml 75 ml 100 ml Output Total 180 ml Balance 300 ml 75 ml -80 ml Justicifation of Admission Dx: Justifications for Admission: Justification of Admission Dx: Yes Acute Renal Failure: 3-Fold Rise in Serum KARLENE Jeter MD Apr 08, 2020 14:15
[2020-04-08 15:00] VITALS: BP 137/56
--- NOTE | 2020-04-08 15:10 | PDOC2 ---
CONSULT Date of Consult Date of Consult DATE: 04/08/20 TIME: 15:03 Reason for Consult Reason for Consult: CESILIA AND HIGH CA Referring Physician Referring Physician: EJ Identification/Chief Complaint Chief Complaint CONFUSION Source Source: Chart review History of Present Illness Reason for Visit: THIS IS A 74 YR OLD WITH WEAKNESS. HAS HAD SOME CONFUSION, NAUSEA AND DRY HEAVES. ON ADMIT NOTED TO HAVE A CR OF 3.2 AND A CA OF 15.5. UNABLE TO SAY IF SHE HAS ANY CKD. RENAL SONO C/W CMRD. NO OTHER HX. THERE IS CONCERN OF A LUNG MALIGNANCY AND METS. PULM AND HEME/ONC EVALUATION ONGOING AT THIS TIME. NO NEPHROTOXINS OR HEMODYNAMIC INSTABILITY NOTED. NO VIT D OR CA SUPPLEMENTS NOTED BUT HAS BEEN ON A THIAZIDE DIURETIC. Past Medical History Cardiovascular: HTN Musculoskeletal: Osteoarthritis Family History Family History: Hypertension Social History <1 pack per day ALCOHOL: occassional Drugs: None Current Problem List Problem List Problems Medical Problems: (1) Hypercalcemia Status: Acute (2) Person under investigation for COVID-19 Status: Acute Current Medications Current Medications Current Medications Sodium Chloride 1,000 ml @ 1,000 mls/hr 1X ONCE IV Last administered on 04/06/20at 21:37; Start 04/06/20 at 20:15; Stop 04/06/20 at 21:14; Status DC Sodium Chloride 1,000 ml @ 1,000 mls/hr 1X ONCE IV Last administered on 04/06/20at 01:00; Start 04/06/20 at 21:30; Stop 04/06/20 at 22:29; Status DC Ceftriaxone Sodium (Rocephin) 1 gm 1X ONCE IVP Last administered on 04/06/20at 21:36; Start 04/06/20 at 21:30; Stop 04/06/20 at 21:31; Status DC Azithromycin (Zithromax) 500 mg 1X ONCE PO Last administered on 04/06/20at 21:35; Start 04/06/20 at 21:30; Stop 04/06/20 at 21:31; Status DC Ondansetron HCl (Zofran) 4 mg PRN Q8HRS PRN IV NAUSEA/VOMITING Last administered on 04/07/20at 20:26; Start 04/06/20 at 21:45; Stop 04/07/20 at 21:44; Status DC Sennosides (Senna) 17.2 mg PRN BID PRN PO CONSTIPATION Last administered on 04/07/20at 09:24; Start 04/06/20 at 21:45 Docusate Sodium (Colace) 100 mg PRN DAILY PRN PO HARD STOOLS Last administered on 04/07/20at 09:24; Start 04/06/20 at 21:45 Ondansetron HCl (Zofran) 4 mg PRN Q6HRS PRN IVP NAUSEA/VOMITING; Start 04/06/20 at 21:45 Albuterol/ Ipratropium (Duoneb) 3 ml RTQID NEB ; Start 04/07/20 at 08:00; Stop 04/06/20 at 22:04; Status DC Potassium Chloride (Klor-Con) 40 meq 1X PRN PO PER PROTOCOL; Start 04/06/20 at 21:45 Magnesium Oxide (Magnesium Oxide) 400 mg PRN BID PRN PO SEE PARAMETER; Start 04/07/20 at 09:00 Potassium Chloride/Water 100 ml @ 100 mls/hr PRN Q1HR PRN IV SEE PARAMETER; Start 04/06/20 at 21:45 Magnesium Sulfate 50 ml @ 25 mls/hr PRN Q24HRS PRN IV SEE PARAMETER; Start 04/06/20 at 21:45 Potassium Chloride/Water 100 ml @ 100 mls/hr PRN Q1HR PRN IV low k; Start 04/06/20 at 21:45 Dextrose (Dextrose 50%-Water Syringe) 12.5 gm PRN Q15MIN PRN IV SEE COMMENTS; Start 04/06/20 at 21:45 Sodium Chloride 1,000 ml @ 100 mls/hr Q10H IV Last administered on 04/08/20at 12:44; Start 04/06/20 at 21:33 Acetaminophen (Tylenol) 650 mg PRN Q4HRS PRN PO TEMP OVER 100.4F OR MILD PAIN Last administered on 04/07/20at 09:24; Start 04/06/20 at 21:45 Albuterol/ Ipratropium (Duoneb) 3 ml Q4HRS W/A NEB ; Start 04/06/20 at 22:00; Stop 04/07/20 at 01:16; Status DC Heparin Sodium (Porcine) (Heparin Sodium) 5,000 unit Q12HR SQ Last administered on 04/07/20 09:25; Start 04/07/20 at 09:00; Stop 04/07/20 at 15:34; Status DC Ceftriaxone Sodium (Rocephin) 1 gm Q24H IVP Last administered on 04/07/20at 20:26; Start 04/07/20 at 21:00 Azithromycin 500 mg/Sodium Chloride 250 ml @ 250 mls/hr Q24H IV Last administered on 04/07/20at 20:26; Start 04/07/20 at 21:00 Sodium Chloride 1,000 ml @ 125 mls/hr 1X ONCE IV Last administered on 04/06/20at 00:43; Start 04/06/20 at 22:15; Stop 04/07/20 at 06:14; Status DC Albuterol/ Ipratropium (Duoneb) 3 ml PRN Q4HRS NEB ; Start 04/07/20 at 22:00 Lactobacillus Rhamnosus (Culturelle) 1 cap BID PO Last administered on 04/08/20at 08:03; Start 04/07/20 at 21:00 Acetaminophen/ Hydrocodone Bitart (Lortab 5/325) 1 tab PRN Q6HRS PRN PO MODERATE - SEVERE PAIN Last administered on 04/07/20at 15:22; Start 04/07/20 at 15:15 Polyethylene Glycol (miraLAX PACKET) 17 gm DAILY PO Last administered on 04/08/20at 08:03; Start 04/07/20 at 16:00 Heparin Sodium (Porcine) (Heparin Sodium) 5,000 unit Q8HRS SQ Last administered on 04/07/20at 20:30; Start 04/07/20 at 22:00 Active Scripts Active Lisinopril 10 Mg Tablet 1 Tab PO DAILY Reported Hydrochlorothiazide Capsule (Hydrochlorothiazide) 12.5 Mg Capsule 12.5 Mg PO DAILY Miralax (Polyethylene Glycol 3350) 17 Gm Powd.pack 1 Packet PO DAILY 2 Days dissolve in water Allergies Allergies: Coded Allergies: Penicillins (Verified Allergy, Intermediate, 06/09/18) RASH ROS General: YES: Fatigue PSYCHOLOGICAL ROS: YES: Anxiety, Disorientation Eyes: Yes Decreased vision HEENT: YES: Heacaches Respiratory: YES: Cough Gastrointestinal: Yes Nausea Genitourinary: YES Other (NOCTURIA) Musculoskeletal: Yes Muscular Weakness Neurological: Yes Weakness Skin: Yes Dry Skin Physical Exam General: Alert, Oriented X3, Cooperative, No acute distress HEENT: Atraumatic, PERRLA Lungs: Clear to auscultation Heart: Regular rate Abdomen: Normal bowel sounds, Soft, No hepatosplenomegaly Extremities: No clubbing Skin: No breakdown Neuro: Normal speech, Cranial nerves 3-12 NL Psych/Mental Status: Mental status NL, Mood NL MUSCULOSKELETAL: No joint tenderness, No swelling, No muscular tenderness noted Vitals VITALS Vital Signs Date Time Temp Pulse Resp B/P (MAP) Pulse Ox O2 Delivery O2 Flow Rate FiO2 04/08/20 11:00 97.6 117 16 130/57 (81) 98 Nasal Cannula 2.0 97.6 Labs Labs Laboratory Tests Test 04/06/20 20:20 04/06/20 22:00 04/06/20 22:05 04/06/20 23:38 White Blood Count 16.9 x10^3/uL (4.0-11.0) Red Blood Count 3.47 x10^6/uL (3.50-5.40) Hemoglobin 10.8 g/dL (12.0-15.5) Hematocrit 32.1 % (36.0-47.0) Mean Corpuscular Volume 92 fL (79-100) Mean Corpuscular Hemoglobin 31 pg (25-35) Mean Corpuscular Hemoglobin Concent 34 g/dL (31-37) Red Cell Distribution Width 13.4 % (11.5-14.5) Platelet Count 366 x10^3/uL (140-400) Neutrophils (%) (Auto) 89 % (31-73) Lymphocytes (%) (Auto) 5 % (24-48) Monocytes (%) (Auto) 5 % (0-9) Eosinophils (%) (Auto) 1 % (0-3) Basophils (%) (Auto) 0 % (0-3) Neutrophils # (Auto) 15.0 x10^3/uL (1.8-7.7) Lymphocytes # (Auto) 0.9 x10^3/uL (1.0-4.8) Monocytes # (Auto) 0.8 x10^3/uL (0.0-1.1) Eosinophils # (Auto) 0.1 x10^3/uL (0.0-0.7) Basophils # (Auto) 0.1 x10^3/uL (0.0-0.2) Segmented Neutrophils % 86 % (35-66) Band Neutrophils % 2 % (0-9) Lymphocytes % 7 % (24-48) Monocytes % 4 % (0-10) Metamyelocytes % 1 % (0-0) Toxic Granulation Slight Platelet Estimate Adequate (ADEQUATE) Prothrombin Time 14.5 SEC (11.7-14.0) Prothromb Time International Ratio 1.2 (0.8-1.1) Activated Partial Thromboplast Time 22 SEC (24-38) Sodium Level 133 mmol/L (136-145) Potassium Level 3.6 mmol/L (3.5-5.1) Chloride Level 97 mmol/L (98-107) Carbon Dioxide Level 27 mmol/L (21-32) Anion Gap 9 (6-14) Blood Urea Nitrogen 77 mg/dL (7-20) Creatinine 3.2 mg/dL (0.6-1.0) Estimated GFR (Cockcroft-Gault) 14.2 BUN/Creatinine Ratio 24 (6-20) Glucose Level 128 mg/dL (70-99) Calcium Level 15.5 mg/dL (8.5-10.1) Total Bilirubin 0.3 mg/dL (0.2-1.0) Aspartate Amino Transf (AST/SGOT) 87 U/L (15-37) Alanine Aminotransferase (ALT/SGPT) 19 U/L (14-59) Alkaline Phosphatase 132 U/L (46-116) Troponin I Quantitative 0.035 ng/mL (0.000-0.055) 0.023 ng/mL (0.000-0.055) Total Protein 6.9 g/dL (6.4-8.2) Albumin 2.6 g/dL (3.4-5.0) Albumin/Globulin Ratio 0.6 (1.0-1.7) 25-Hydroxy Vitamin D Total 33.0 ng/mL (30-100) Urine Collection Type Void Urine Color Yellow Urine Clarity Cloudy Urine pH 5.5 (<5.0-8.0) Urine Specific [place] 1.010 (1.000-1.030) Urine Protein Negative mg/dL (NEG-TRACE) Urine Glucose (UA) Negative mg/dL (NEG) Urine Ketones (Stick) Negative mg/dL (NEG) Urine Blood Negative (NEG) Urine Nitrite Negative (NEG) Urine Bilirubin Negative (NEG) Urine Urobilinogen Dipstick 0.2 mg/dL (0.2 mg/dL) Urine Leukocyte Esterase Large (NEG) Urine RBC Rare /HPF (0-2) Urine WBC 11-20 /HPF (0-4) Urine Squamous Epithelial Cells Many /LPF Urine Bacteria Many /HPF (0-FEW) Coronavirus (PCR) Not detected (Not Detected) Estimated GFR (Non- 15 (>59) EGFR 17 (>59) PTH (Intact) Specimen Description Comment (.) Parathyroid Hormone (Intact) 277 pg/mL (15-65) Calcium (PTH Intact) 14.6 mg/dL (8.7-10.3) Creatinine (PTH Intact) 3.04 mg/dL (0.57-1.00) Phosphorus (PTH Intact) 5.6 mg/dL (3.0-4.3) Test 04/07/20 03:25 04/07/20 05:17 04/08/20 05:00 White Blood Count 17.9 x10^3/uL (4.0-11.0) 23.1 x10^3/uL (4.0-11.0) Red Blood Count 3.30 x10^6/uL (3.50-5.40) 3.18 x10^6/uL (3.50-5.40) Hemoglobin 10.1 g/dL (12.0-15.5) 9.7 g/dL (12.0-15.5) Hematocrit 30.7 % (36.0-47.0) 30.0 % (36.0-47.0) Mean Corpuscular Volume 93 fL (79-100) 94 fL (79-100) Mean Corpuscular Hemoglobin 31 pg (25-35) 31 pg (25-35) Mean Corpuscular Hemoglobin Concent 33 g/dL (31-37) 32 g/dL (31-37) Red Cell Distribution Width 13.7 % (11.5-14.5) 13.8 % (11.5-14.5) Platelet Count 356 x10^3/uL (140-400) 348 x10^3/uL (140-400) Neutrophils (%) (Auto) 89 % (31-73) 94 % (31-73) Lymphocytes (%) (Auto) 5 % (24-48) 2 % (24-48) Monocytes (%) (Auto) 5 % (0-9) 4 % (0-9) Eosinophils (%) (Auto) 1 % (0-3) 0 % (0-3) Basophils (%) (Auto) 1 % (0-3) 0 % (0-3) Neutrophils # (Auto) 15.9 x10^3/uL (1.8-7.7) 21.7 x10^3/uL (1.8-7.7) Lymphocytes # (Auto) 0.9 x10^3/uL (1.0-4.8) 0.5 x10^3/uL (1.0-4.8) Monocytes # (Auto) 0.8 x10^3/uL (0.0-1.1) 0.9 x10^3/uL (0.0-1.1) Eosinophils # (Auto) 0.1 x10^3/uL (0.0-0.7) 0.0 x10^3/uL (0.0-0.7) Basophils # (Auto) 0.1 x10^3/uL (0.0-0.2) 0.0 x10^3/uL (0.0-0.2) Sodium Level 136 mmol/L (136-145) 139 mmol/L (136-145) Potassium Level 3.6 mmol/L (3.5-5.1) 3.3 mmol/L (3.5-5.1) Chloride Level 101 mmol/L (98-107) 105 mmol/L (98-107) Carbon Dioxide Level 24 mmol/L (21-32) 23 mmol/L (21-32) Anion Gap 11 (6-14) 11 (6-14) Blood Urea Nitrogen 75 mg/dL (7-20) 70 mg/dL (7-20) Creatinine 3.0 mg/dL (0.6-1.0) 2.7 mg/dL (0.6-1.0) Estimated GFR (Cockcroft-Gault) 15.3 17.2 BUN/Creatinine Ratio 25 (6-20) 26 (6-20) Glucose Level 100 mg/dL (70-99) 79 mg/dL (70-99) Calcium Level 14.9 mg/dL (8.5-10.1) 14.7 mg/dL (8.5-10.1) Phosphorus Level 5.7 mg/dL (2.6-4.7) Magnesium Level 1.6 mg/dL (1.8-2.4) Total Bilirubin 0.3 mg/dL (0.2-1.0) 0.3 mg/dL (0.2-1.0) Aspartate Amino Transf (AST/SGOT) 76 U/L (15-37) 88 U/L (15-37) Alanine Aminotransferase (ALT/SGPT) 16 U/L (14-59) 17 U/L (14-59) Alkaline Phosphatase 118 U/L (46-116) 104 U/L (46-116) Troponin I Quantitative 0.037 ng/mL (0.000-0.055) Total Protein 5.6 g/dL (6.4-8.2) 5.7 g/dL (6.4-8.2) Albumin 2.4 g/dL (3.4-5.0) 2.0 g/dL (3.4-5.0) Albumin/Globulin Ratio 0.8 (1.0-1.7) 0.5 (1.0-1.7) Lactic Acid Level 1.0 mmol/L (0.4-2.0) Laboratory Tests Test 04/08/20 05:00 White Blood Count 23.1 x10^3/uL (4.0-11.0) Red Blood Count 3.18 x10^6/uL (3.50-5.40) Hemoglobin 9.7 g/dL (12.0-15.5) Hematocrit 30.0 % (36.0-47.0) Mean Corpuscular Volume 94 fL (79-100) Mean Corpuscular Hemoglobin 31 pg (25-35) Mean Corpuscular Hemoglobin Concent 32 g/dL (31-37) Red Cell Distribution Width 13.8 % (11.5-14.5) Platelet Count 348 x10^3/uL (140-400) Neutrophils (%) (Auto) 94 % (31-73) Lymphocytes (%) (Auto) 2 % (24-48) Monocytes (%) (Auto) 4 % (0-9) Eosinophils (%) (Auto) 0 % (0-3) Basophils (%) (Auto) 0 % (0-3) Neutrophils # (Auto) 21.7 x10^3/uL (1.8-7.7) Lymphocytes # (Auto) 0.5 x10^3/uL (1.0-4.8) Monocytes # (Auto) 0.9 x10^3/uL (0.0-1.1) Eosinophils # (Auto) 0.0 x10^3/uL (0.0-0.7) Basophils # (Auto) 0.0 x10^3/uL (0.0-0.2) Sodium Level 139 mmol/L (136-145) Potassium Level 3.3 mmol/L (3.5-5.1) Chloride Level 105 mmol/L (98-107) Carbon Dioxide Level 23 mmol/L (21-32) Anion Gap 11 (6-14) Blood Urea Nitrogen 70 mg/dL (7-20) Creatinine 2.7 mg/dL (0.6-1.0) Estimated GFR (Cockcroft-Gault) 17.2 BUN/Creatinine Ratio 26 (6-20) Glucose Level 79 mg/dL (70-99) Calcium Level 14.7 mg/dL (8.5-10.1) Total Bilirubin 0.3 mg/dL (0.2-1.0) Aspartate Amino Transf (AST/SGOT) 88 U/L (15-37) Alanine Aminotransferase (ALT/SGPT) 17 U/L (14-59) Alkaline Phosphatase 104 U/L (46-116) Total Protein 5.7 g/dL (6.4-8.2) Albumin 2.0 g/dL (3.4-5.0) Albumin/Globulin Ratio 0.5 (1.0-1.7) Assessment/Plan Assessment/Plan IMP CESILIA-ATN EXTRACELLULAR VOLUME DEPLETION WEAKNESS SEVERE HYPERCALCEMIA PROB LUNG MALIGNANCY WITH METS CAP PROBABLY TOBACCOISM PLAN PULM AND HEME/ONC EVALUATION SALINE HYDRATION START CALCITONIN SQ AVOID THIAZIDE SPEP PENDING WILL FOLLOW GLADIS COOK MD Apr 08, 2020 15:10
[2020-04-08] MEDS: HEPARIN for SUB-Q USE 5,000 UNIT/ML VIAL. SQ SCH ×2 (15:30→23:08)
[2020-04-08] MEDS: CALCITONIN,SALMON 400 UNIT/2 ML VIAL. SQ SCH (16:42)
[2020-04-08 19:48] VITALS: BP 138/66
[2020-04-08 23:00] VITALS: BP 130/61
[2020-04-08] MEDS: cefTRIAXone IV Push 1 GM VIAL. IVP SCH (23:00)
[2020-04-08] MEDS: AZITHROMYCIN 500 MG in IV NORMAL SALINE 250ML 250 ML IV SCH (23:16)
[2020-04-09 03:16] VITALS: BP 132/77
[2020-04-09 07:00] VITALS: BP 141/73
[2020-04-09] MEDS: HEPARIN for SUB-Q USE 5,000 UNIT/ML VIAL. SQ SCH ×3 (07:04→21:53)
[2020-04-09 07:32] LABS: CREATININE 2.4 mg/dL (0.6-1.0); GFR 19.7; MAGNESIUM 1.5 mg/dL (1.8-2.4); PHOSPHORUS 5.6 mg/dL (2.6-4.7); POTASSIUM 3.1 mmol/L (3.5-5.1)
[2020-04-09 07:35] LABS: CALCIUM 13.2 mg/dL (8.5-10.1)
--- NOTE | 2020-04-09 08:17 | PDOC ---
PULMONARY PROGRESS NOTES DATE: 04/09/20 TIME: 08:17 Subjective Patient not more short of air no respiratory Vitals Vital Signs Date Time Temp Pulse Resp B/P (MAP) Pulse Ox O2 Delivery O2 Flow Rate FiO2 04/09/20 03:16 97.8 115 18 132/77 (95) 96 Nasal Cannula 2.0 97.8 ROS: No Chest Pain, No Abdominal Pain, No Increase Cough General: Alert Lungs: Clear Cardiovascular: S1, S2 Abdomen: Soft Neuro Exam: Alert Extremities: No Edema Skin: Warm Labs Laboratory Tests Test 04/08/20 05:00 04/09/20 06:15 White Blood Count 23.1 x10^3/uL (4.0-11.0) Red Blood Count 3.18 x10^6/uL (3.50-5.40) Hemoglobin 9.7 g/dL (12.0-15.5) Hematocrit 30.0 % (36.0-47.0) Mean Corpuscular Volume 94 fL (79-100) Mean Corpuscular Hemoglobin 31 pg (25-35) Mean Corpuscular Hemoglobin Concent 32 g/dL (31-37) Red Cell Distribution Width 13.8 % (11.5-14.5) Platelet Count 348 x10^3/uL (140-400) Neutrophils (%) (Auto) 94 % (31-73) Lymphocytes (%) (Auto) 2 % (24-48) Monocytes (%) (Auto) 4 % (0-9) Eosinophils (%) (Auto) 0 % (0-3) Basophils (%) (Auto) 0 % (0-3) Neutrophils # (Auto) 21.7 x10^3/uL (1.8-7.7) Lymphocytes # (Auto) 0.5 x10^3/uL (1.0-4.8) Monocytes # (Auto) 0.9 x10^3/uL (0.0-1.1) Eosinophils # (Auto) 0.0 x10^3/uL (0.0-0.7) Basophils # (Auto) 0.0 x10^3/uL (0.0-0.2) Sodium Level 139 mmol/L (136-145) 142 mmol/L (136-145) Potassium Level 3.3 mmol/L (3.5-5.1) 3.1 mmol/L (3.5-5.1) Chloride Level 105 mmol/L (98-107) 108 mmol/L (98-107) Carbon Dioxide Level 23 mmol/L (21-32) 22 mmol/L (21-32) Anion Gap 11 (6-14) 12 (6-14) Blood Urea Nitrogen 70 mg/dL (7-20) 74 mg/dL (7-20) Creatinine 2.7 mg/dL (0.6-1.0) 2.4 mg/dL (0.6-1.0) Estimated GFR (Cockcroft-Gault) 17.2 19.7 BUN/Creatinine Ratio 26 (6-20) Glucose Level 79 mg/dL (70-99) 102 mg/dL (70-99) Calcium Level 14.7 mg/dL (8.5-10.1) 13.2 mg/dL (8.5-10.1) Total Bilirubin 0.3 mg/dL (0.2-1.0) Aspartate Amino Transf (AST/SGOT) 88 U/L (15-37) Alanine Aminotransferase (ALT/SGPT) 17 U/L (14-59) Alkaline Phosphatase 104 U/L (46-116) Total Protein 5.7 g/dL (6.4-8.2) Albumin 2.0 g/dL (3.4-5.0) Albumin/Globulin Ratio 0.5 (1.0-1.7) Phosphorus Level 5.6 mg/dL (2.6-4.7) Magnesium Level 1.5 mg/dL (1.8-2.4) Laboratory Tests Test 04/09/20 06:15 Sodium Level 142 mmol/L (136-145) Potassium Level 3.1 mmol/L (3.5-5.1) Chloride Level 108 mmol/L (98-107) Carbon Dioxide Level 22 mmol/L (21-32) Anion Gap 12 (6-14) Blood Urea Nitrogen 74 mg/dL (7-20) Creatinine 2.4 mg/dL (0.6-1.0) Estimated GFR (Cockcroft-Gault) 19.7 Glucose Level 102 mg/dL (70-99) Calcium Level 13.2 mg/dL (8.5-10.1) Phosphorus Level 5.6 mg/dL (2.6-4.7) Magnesium Level 1.5 mg/dL (1.8-2.4) Medications Active Scripts Medications Dose Route/Sig Max Daily Dose Days Date Category Dose Instructions Hydrochlorothiazide Capsule (Hydrochlorothiazide) 12.5 Mg Capsule 12.5 Mg PO DAILY 04/07/20 Reported Miralax (Polyethylene Glycol 3350) 17 Gm Powd.pack 1 Packet PO DAILY 2 04/07/20 Reported dissolve in water Lisinopril 10 Mg Tablet 1 Tab PO DAILY 06/09/18 Rx Impression . IMPRESSION: 1. Abnormal x-ray, revealing some chronic changes, possibly volume loss in the right upper lobe.SEE CT REPORT 2. Acute exacerbation of chronic obstructive pulmonary disease. 3. Possible pneumonia. 4. Acute on chronic renal failure. 5. Hypercalcemia. 6. Hypomagnesemia. 7. Chronic obstructive pulmonary disease, unknown FEV1. 8. Alcoholism. 9. Severe protein malnutrition, present upon admission. 10. SARS-CoV-2 negative. 11. Suspect metastatic cancer CT CEST IMPRESSION: 1. There are lytic bone lesions suspicious for bone metastases. Pathologic rib fractures as noted above. 2. There is a bulky left mediastinal ronald mass that is partially calcified. There are partially calcified lung nodules in the medial left lung apex and anterior left upper lobe. Primary consideration is lung malignancy given the other findings. Treated lymphoma or sarcoidosis are less likely considerations. 3. There are several small pleural-based nodules bilaterally suspicious for pleural metastases. 4. Small bilateral pleural effusions. 5. 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 6. There are irregular soft tissue densities in the left upper abdomen and right cardiophrenic fat, indeterminant. Plan . Findings discussed with [id number] Bessy, She informed me that the patient does not wish to proceed with biopsy, no treatment, she wishes to proceed with possible hospice Patient does not have a primary care doctor I referred her to Dr. Pope Home with antibiotics 04/08 Son at the bedside, I gave him my business card, patient will think about the possibility of performing a biopsy. I did inform the patient and son that I think this is more or less a malignant process. GABRIELA ANDREWS MD Apr 09, 2020 08:17
[2020-04-09] MEDS: POLYETHYLENE GLYCOL 3350 17 GM PACKET. PO SCH (09:28)
[2020-04-09] MEDS: LACTOBACILLUS RHAMNOSUS GG 1 CAPSULE. PO SCH ×2 (09:30→21:40)
[2020-04-09] MEDS: IV NORMAL SALINE 1000ML BAG 1,000 ML IV SCH ×2 (09:32→21:36)
[2020-04-09] MEDS: CALCITONIN,SALMON 400 UNIT/2 ML VIAL. SQ SCH ×2 (09:32→21:45)
--- NOTE | 2020-04-09 10:26 | PDOC ---
PROGRESS NOTES Date of Service: DATE: 04/09/20 TIME: 10:24 Chief Complaint Chief Complaint Generalized weakness, given results of imaging studies, high suspicion for underlying malignancy. Acute exacerbation of chronic obstructive pulmonary disease. Community acquired pneumonia.? Acute on chronic renal failure. Hypercalcemia. Malignancy related, Multiple myeloma a possibility given lytic lesions on imaging studies. Hypomagnesemia. History of alcohol abuse Severe protein malnutrition, present upon admission. SARS-CoV-2 negative. Plan: follow recommendations from Nephrology and Pulm internet marketing consultant will consult oncology will order spep and upep reassess in the am History of Present Illness History of Present Illness SEEN IN ER WITH WEAKNESS , 74 year old female with past medical history of hypertension and COPD daily smoker presents with a chief complaint of generalized weakness associated with nausea and vomiting since the beginning of February. Patient states nausea and vomiting have been going on and off since onset. Patient states weakness has progressively become worse. Patient has occasional cough with sputum production which she states is chronic. She denies any fever chills chest pain or shortness of breath. CR NOW IN 3 RANGE, C/O BACK PAIN, 15 LB RECENT WEIGHT LOSS, Nephrology consulted, uti likely 04/08/2020 Patient feeling better she relates to me that she has had hypercalcemia for a long time now. Patient was given results of her imaging studies and the suspicion for malignancy She seems more interested in going home 04/09/2020 Patient seems to be doing better. She is very interested in going home. We will follow recommendations from internet marketing consultant if no further inpatient inpatient services required patient may be discharged later in the day Vitals Vitals Vital Signs Date Time Temp Pulse Resp B/P (MAP) Pulse Ox O2 Delivery O2 Flow Rate FiO2 04/09/20 07:00 97.2 119 20 141/73 (95) 93 Nasal Cannula 2.0 97.2 Physical Exam General: Alert, Oriented X3, Cooperative, No acute distress Heart: Regular rate Lungs: Clear Abdomen: Normal bowel sounds, Soft, No hepatosplenomegaly Extremities: No clubbing Skin: No breakdown Labs LABS Laboratory Tests Test 04/09/20 06:15 Sodium Level 142 mmol/L (136-145) Potassium Level 3.1 mmol/L (3.5-5.1) Chloride Level 108 mmol/L (98-107) Carbon Dioxide Level 22 mmol/L (21-32) Anion Gap 12 (6-14) Blood Urea Nitrogen 74 mg/dL (7-20) Creatinine 2.4 mg/dL (0.6-1.0) Estimated GFR (Cockcroft-Gault) 19.7 Glucose Level 102 mg/dL (70-99) Calcium Level 13.2 mg/dL (8.5-10.1) Phosphorus Level 5.6 mg/dL (2.6-4.7) Magnesium Level 1.5 mg/dL (1.8-2.4) Assessment and Plan Assessmemt and Plan Problems Medical Problems: (1) Hypercalcemia Status: Acute (2) Person under investigation for COVID-19 Status: Acute Comment Review of Relevant I have reviewed the following items luke (where applicable) has been applied. Labs Laboratory Tests Test 04/08/20 05:00 04/09/20 06:15 White Blood Count 23.1 x10^3/uL (4.0-11.0) Red Blood Count 3.18 x10^6/uL (3.50-5.40) Hemoglobin 9.7 g/dL (12.0-15.5) Hematocrit 30.0 % (36.0-47.0) Mean Corpuscular Volume 94 fL (79-100) Mean Corpuscular Hemoglobin 31 pg (25-35) Mean Corpuscular Hemoglobin Concent 32 g/dL (31-37) Red Cell Distribution Width 13.8 % (11.5-14.5) Platelet Count 348 x10^3/uL (140-400) Neutrophils (%) (Auto) 94 % (31-73) Lymphocytes (%) (Auto) 2 % (24-48) Monocytes (%) (Auto) 4 % (0-9) Eosinophils (%) (Auto) 0 % (0-3) Basophils (%) (Auto) 0 % (0-3) Neutrophils # (Auto) 21.7 x10^3/uL (1.8-7.7) Lymphocytes # (Auto) 0.5 x10^3/uL (1.0-4.8) Monocytes # (Auto) 0.9 x10^3/uL (0.0-1.1) Eosinophils # (Auto) 0.0 x10^3/uL (0.0-0.7) Basophils # (Auto) 0.0 x10^3/uL (0.0-0.2) Sodium Level 139 mmol/L (136-145) 142 mmol/L (136-145) Potassium Level 3.3 mmol/L (3.5-5.1) 3.1 mmol/L (3.5-5.1) Chloride Level 105 mmol/L (98-107) 108 mmol/L (98-107) Carbon Dioxide Level 23 mmol/L (21-32) 22 mmol/L (21-32) Anion Gap 11 (6-14) 12 (6-14) Blood Urea Nitrogen 70 mg/dL (7-20) 74 mg/dL (7-20) Creatinine 2.7 mg/dL (0.6-1.0) 2.4 mg/dL (0.6-1.0) Estimated GFR (Cockcroft-Gault) 17.2 19.7 BUN/Creatinine Ratio 26 (6-20) Glucose Level 79 mg/dL (70-99) 102 mg/dL (70-99) Calcium Level 14.7 mg/dL (8.5-10.1) 13.2 mg/dL (8.5-10.1) Total Bilirubin 0.3 mg/dL (0.2-1.0) Aspartate Amino Transf (AST/SGOT) 88 U/L (15-37) Alanine Aminotransferase (ALT/SGPT) 17 U/L (14-59) Alkaline Phosphatase 104 U/L (46-116) Total Protein 5.7 g/dL (6.4-8.2) Albumin 2.0 g/dL (3.4-5.0) Albumin/Globulin Ratio 0.5 (1.0-1.7) Phosphorus Level 5.6 mg/dL (2.6-4.7) Magnesium Level 1.5 mg/dL (1.8-2.4) Laboratory Tests Test 04/09/20 06:15 Sodium Level 142 mmol/L (136-145) Potassium Level 3.1 mmol/L (3.5-5.1) Chloride Level 108 mmol/L (98-107) Carbon Dioxide Level 22 mmol/L (21-32) Anion Gap 12 (6-14) Blood Urea Nitrogen 74 mg/dL (7-20) Creatinine 2.4 mg/dL (0.6-1.0) Estimated GFR (Cockcroft-Gault) 19.7 Glucose Level 102 mg/dL (70-99) Calcium Level 13.2 mg/dL (8.5-10.1) Phosphorus Level 5.6 mg/dL (2.6-4.7) Magnesium Level 1.5 mg/dL (1.8-2.4) Microbiology 04/07/20 Blood Culture - Preliminary, Resulted NO GROWTH AFTER 2 DAYS 04/06/20 Urine Culture - Final, Complete Medications Current Medications Sodium Chloride 1,000 ml @ 1,000 mls/hr 1X ONCE IV Last administered on 04/06/20at 21:37; Start 04/06/20 at 20:15; Stop 04/06/20 at 21:14; Status DC Sodium Chloride 1,000 ml @ 1,000 mls/hr 1X ONCE IV Last administered on 04/06/20at 01:00; Start 04/06/20 at 21:30; Stop 04/06/20 at 22:29; Status DC Ceftriaxone Sodium (Rocephin) 1 gm 1X ONCE IVP Last administered on 04/06/20at 21:36; Start 04/06/20 at 21:30; Stop 04/06/20 at 21:31; Status DC Azithromycin (Zithromax) 500 mg 1X ONCE PO Last administered on 04/06/20at 21:35; Start 04/06/20 at 21:30; Stop 04/06/20 at 21:31; Status DC Ondansetron HCl (Zofran) 4 mg PRN Q8HRS PRN IV NAUSEA/VOMITING Last administered on 04/07/20at 20:26; Start 04/06/20 at 21:45; Stop 04/07/20 at 21:44; Status DC Sennosides (Senna) 17.2 mg PRN BID PRN PO CONSTIPATION Last administered on 04/07/20at 09:24; Start 04/06/20 at 21:45 Docusate Sodium (Colace) 100 mg PRN DAILY PRN PO HARD STOOLS Last administered on 04/07/20at 09:24; Start 04/06/20 at 21:45 Ondansetron HCl (Zofran) 4 mg PRN Q6HRS PRN IVP NAUSEA/VOMITING; Start 04/06/20 at 21:45 Albuterol/ Ipratropium (Duoneb) 3 ml RTQID NEB ; Start 04/07/20 at 08:00; Stop 04/06/20 at 22:04; Status DC Potassium Chloride (Klor-Con) 40 meq 1X PRN PO PER PROTOCOL Last administered on 04/09/20at 09:29; Start 04/06/20 at 21:45 Magnesium Oxide (Magnesium Oxide) 400 mg PRN BID PRN PO SEE PARAMETER; Start 04/07/20 at 09:00 Potassium Chloride/Water 100 ml @ 100 mls/hr PRN Q1HR PRN IV SEE PARAMETER; Start 04/06/20 at 21:45 Magnesium Sulfate 50 ml @ 25 mls/hr PRN Q24HRS PRN IV SEE PARAMETER Last administered on 04/09/20at 09:33; Start 04/06/20 at 21:45 Potassium Chloride/Water 100 ml @ 100 mls/hr PRN Q1HR PRN IV low k; Start 04/06/20 at 21:45 Dextrose (Dextrose 50%-Water Syringe) 12.5 gm PRN Q15MIN PRN IV SEE COMMENTS; Start 04/06/20 at 21:45 Sodium Chloride 1,000 ml @ 100 mls/hr Q10H IV Last administered on 04/09/20at 09:32; Start 04/06/20 at 21:33 Acetaminophen (Tylenol) 650 mg PRN Q4HRS PRN PO TEMP OVER 100.4F OR MILD PAIN Last administered on 04/07/20at 09:24; Start 04/06/20 at 21:45 Albuterol/ Ipratropium (Duoneb) 3 ml Q4HRS W/A NEB ; Start 04/06/20 at 22:00; Stop 04/07/20 at 01:16; Status DC Heparin Sodium (Porcine) (Heparin Sodium) 5,000 unit Q12HR SQ Last administered on 04/07/20at 09:25; Start 04/07/20 at 09:00; Stop 04/07/20 at 15:34; Status DC Ceftriaxone Sodium (Rocephin) 1 gm Q24H IVP Last administered on 04/08/20at 23:00; Start 04/07/20 at 21:00 Azithromycin 500 mg/Sodium Chloride 250 ml @ 250 mls/hr Q24H IV Last administered on 04/08/20at 23:16; Start 04/07/20 at 21:00 Sodium Chloride 1,000 ml @ 125 mls/hr 1X ONCE IV Last administered on 04/06/20at 00:43; Start 04/06/20 at 22:15; Stop 04/07/20 at 06:14; Status DC Albuterol/ Ipratropium (Duoneb) 3 ml PRN Q4HRS NEB ; Start 04/07/20 at 22:00 Lactobacillus Rhamnosus (Culturelle) 1 cap BID PO Last administered on 04/09/20at 09:30; Start 04/07/20 at 21:00 Acetaminophen/ Hydrocodone Bitart (Lortab 5/325) 1 tab PRN Q6HRS PRN PO MODERATE - SEVERE PAIN Last administered on 04/07/20at 15:22; Start 04/07/20 at 15:15 Polyethylene Glycol (miraLAX PACKET) 17 gm DAILY PO Last administered on 04/09/20at 09:28; Start 04/07/20 at 16:00 Heparin Sodium (Porcine) (Heparin Sodium) 5,000 unit Q8HRS SQ Last administered on 04/09/20at 07:04; Start 04/07/20 at 22:00 Calcitonin [place] (Miacalcin) 400 unit BID SQ Last administered on 04/09/20at 09:32; Start 04/08/20 at 16:00 Active Scripts Active Lisinopril 10 Mg Tablet 1 Tab PO DAILY Reported Hydrochlorothiazide Capsule (Hydrochlorothiazide) 12.5 Mg Capsule 12.5 Mg PO DAILY Miralax (Polyethylene Glycol 3350) 17 Gm Powd.pack 1 Packet PO DAILY 2 Days dissolve in water Vitals/I & O Vital Sign - Last 24 Hours 04/08/20 04/08/20 04/08/20 04/08/20 11:00 15:00 19:48 20:30 Temp 97.6 97.6 97.4 97.6 97.6 97.4 Pulse 117 117 100 Resp 16 18 20 B/P (MAP) 130/57 (81) 137/56 (83) 138/66 (90) Pulse Ox 98 94 93 O2 Delivery Nasal Cannula Nasal Cannula Nasal Cannula Nasal Cannula O2 Flow Rate 2.0 2.0 2.0 2.0 04/08/20 04/09/20 04/09/20 23:00 03:16 07:00 Temp 98.1 97.8 97.2 98.1 97.8 97.2 Pulse 121 115 119 Resp 18 18 20 B/P (MAP) 130/61 (84) 132/77 (95) 141/73 (95) Pulse Ox 90 96 93 O2 Delivery Nasal Cannula Nasal Cannula Nasal Cannula O2 Flow Rate 2.0 2.0 2.0 Intake and Output 04/08/20 04/08/20 04/09/20 15:00 23:00 07:00 Intake Total 400 ml 180 ml 400 ml Output Total 100 ml 300 ml Balance 400 ml 80 ml 100 ml Nutrition Consultation Dietary Evaluation: Recommendations by RD: Dietary education by RD, Increase Calorie Intake, Protein supplementation Comments: Continue w/regular diet as ordered to liberalize food choices and promote improved PO intake REC Ensure (vanilla) TID Expected Outcomes/Goals: PO intake to meet >75% est needs Malnutrition Findings: Food and Nutrition Intake (Mod: <75% est energy req 7days Weight Status: Underweight Justicifation of Admission Dx: Justifications for Admission: Justification of Admission Dx: Yes Acute Renal Failure: 3-Fold Rise in Serum KARLENE Jeter MD Apr 09, 2020 10:26
[2020-04-09 11:00] VITALS: BP 130/73
--- NOTE | 2020-04-09 11:32 | PDOC ---
Renal-Progress Notes Subjective Notes Notes STILL CONFUSED History of Present Illness Hx of present illness STABLE Vitals Vitals Vital Signs Date Time Temp Pulse Resp B/P (MAP) Pulse Ox O2 Delivery O2 Flow Rate FiO2 04/09/20 07:00 97.2 119 20 141/73 (95) 93 Nasal Cannula 2.0 97.2 Weight Weight [ ] I.O. Intake and Output Intake and Output 04/09/20 07:00 Intake Total 980 ml Output Total 400 ml Balance 580 ml Intake Oral 980 ml Output Urine Total 400 ml # Voids 3 Labs Labs Laboratory Tests Test 04/09/20 06:15 Sodium Level 142 mmol/L (136-145) Potassium Level 3.1 mmol/L (3.5-5.1) Chloride Level 108 mmol/L (98-107) Carbon Dioxide Level 22 mmol/L (21-32) Anion Gap 12 (6-14) Blood Urea Nitrogen 74 mg/dL (7-20) Creatinine 2.4 mg/dL (0.6-1.0) Estimated GFR (Cockcroft-Gault) 19.7 Glucose Level 102 mg/dL (70-99) Calcium Level 13.2 mg/dL (8.5-10.1) Phosphorus Level 5.6 mg/dL (2.6-4.7) Magnesium Level 1.5 mg/dL (1.8-2.4) Micro Micro Microbiology 04/07/20 Blood Culture - Preliminary, Resulted NO GROWTH AFTER 2 DAYS 04/06/20 Urine Culture - Final, Complete Review of Systems Constitutional: yes: other (CONFUSED) Physical Exam General Appearance: no apparent distress Skin: warm Respiratory: bilateral CTA Heart: S1S2, RRR Abdomen: soft, bowel sounds present Genitourinary: bladder flat Extremities: pulses present Neurology: alert, confused Musculoskeletal: Osteoarthritis Assessment Assessment IMP CESILIA-ATN-CR IMPROVED TO 2.4 EXTRACELLULAR VOLUME DEPLETION WEAKNESS SEVERE HYPERCALCEMIA-IMPROVED LOW MAG AND LOW K PROB LUNG MALIGNANCY WITH METS CAP PROBABLY TOBACCOISM PLAN PULM AND HEME/ONC EVALUATION SALINE HYDRATION STARTED CALCITONIN SQ REPLACE K AND MAG AVOID THIAZIDE SPEP PENDING WILL FOLLOW D/W ATTENDING GLADIS COOK MD Apr 09, 2020 11:32
--- NOTE | 2020-04-09 11:48 | PDOC2 ---
CONSULT Date of Consult Date of Consult DATE: 04/09/20 TIME: 11:39 Reason for Consult Reason for Consult: Suspected lung cancer Referring Physician Referring Physician: Dr. Woodard Identification/Chief Complaint Chief Complaint Weakness Source Source: Chart review, Patient History of Present Illness Reason for Visit: Angelika Batista is a 74-year-old female with history of tobacco abuse and COPD who presented to the hospital with weakness and fatigue. Her initial evaluation showed acute kidney injury and hypercalcemia. She has been admitted for further evaluation and management of these lab findings. She received a chest x-ray at the time of her hospitalization which showed volume loss in the right upper lobe. A CT chest was obtained per 's recommendation for further evaluation of these findings. This showed a bulky left mediastinal ronald mass that was partially calcified. In addition, several pleural-based nodules as well as lytic bone lesions were noted. Small bilateral pleural effusions were seen as well. Given suspicion for lung cancer, a biopsy was recommended but the patient had declined it yesterday. Oncology consultation has been sought to direct further evaluation of her suspected malignancy. Patient was seen in consultation today and was once again reluctant to pursue biopsy. I discussed this further with her and she informed me that it was because she "did not want to know if she has cancer". She is undecided if she would like to pursue further evaluation or treatment for this cancer. Patient reports that she has 2 daughters who is contact information was listed in the room. She told me that she would prefer for me did not discuss her current health status with her daughters Past Medical History Cardiovascular: HTN Musculoskeletal: Osteoarthritis Family History Family History: Hypertension Social History <1 pack per day ALCOHOL: occassional Drugs: None Current Problem List Problem List Problems Medical Problems: (1) Hypercalcemia Status: Acute (2) Person under investigation for COVID-19 Status: Acute Current Medications Current Medications Current Medications Sodium Chloride 1,000 ml @ 1,000 mls/hr 1X ONCE IV Last administered on 04/06/20at 21:37; Start 04/06/20 at 20:15; Stop 04/06/20 at 21:14; Status DC Sodium Chloride 1,000 ml @ 1,000 mls/hr 1X ONCE IV Last administered on 04/06at 01:00; Start 04/06/20 at 21:30; Stop 04/06/20 at 22:29; Status DC Ceftriaxone Sodium (Rocephin) 1 gm 1X ONCE IVP Last administered on 04/06/20at 21:36; Start 04/06/20 at 21:30; Stop 04/06/20 at 21:31; Status DC Azithromycin (Zithromax) 500 mg 1X ONCE PO Last administered on 04/06/20at 21:35; Start 04/06/20 at 21:30; Stop 04/06/20 at 21:31; Status DC Ondansetron HCl (Zofran) 4 mg PRN Q8HRS PRN IV NAUSEA/VOMITING Last administered on 04/07/20at 20:26; Start 04/06/20 at 21:45; Stop 04/07/20 at 21:44; Status DC Sennosides (Senna) 17.2 mg PRN BID PRN PO CONSTIPATION Last administered on 04/07/20at 09:24; Start 04/06/20 at 21:45 Docusate Sodium (Colace) 100 mg PRN DAILY PRN PO HARD STOOLS Last administered on 04/07/20at 09:24; Start 04/06/20 at 21:45 Ondansetron HCl (Zofran) 4 mg PRN Q6HRS PRN IVP NAUSEA/VOMITING; Start 04/06/20 at 21:45 Albuterol/ Ipratropium (Duoneb) 3 ml RTQID NEB ; Start 04/07/20 at 08:00; Stop 04/06/20 at 22:04; Status DC Potassium Chloride (Klor-Con) 40 meq 1X PRN PO PER PROTOCOL Last administered on 04/09/20at 09:29; Start 04/06/20 at 21:45 Magnesium Oxide (Magnesium Oxide) 400 mg PRN BID PRN PO SEE PARAMETER; Start 04/07/20 at 09:00 Potassium Chloride/Water 100 ml @ 100 mls/hr PRN Q1HR PRN IV SEE PARAMETER; Start 04/06/20 at 21:45 Magnesium Sulfate 50 ml @ 25 mls/hr PRN Q24HRS PRN IV SEE PARAMETER Last administered on 04/09/20at 09:33; Start 04/06/20 at 21:45 Potassium Chloride/Water 100 ml @ 100 mls/hr PRN Q1HR PRN IV low k; Start 04/06/20 at 21:45 Dextrose (Dextrose 50%-Water Syringe) 12.5 gm PRN Q15MIN PRN IV SEE COMMENTS; Start 04/06/20 at 21:45 Sodium Chloride 1,000 ml @ 100 mls/hr Q10H IV Last administered on 04/09/20at 09:32; Start 04/06/20 at 21:33 Acetaminophen (Tylenol) 650 mg PRN Q4HRS PRN PO TEMP OVER 100.4F OR MILD PAIN Last administered on 04/07/20at 09:24; Start 04/06/20 at 21:45 Albuterol/ Ipratropium (Duoneb) 3 ml Q4HRS W/A NEB ; Start 04/06/20 at 22:00; Stop 04/07/20 at 01:16; Status DC Heparin Sodium (Porcine) (Heparin Sodium) 5,000 unit Q12HR SQ Last administered on 04/07/20at 09:25; Start 04/07/20 at 09:00; Stop 04/07/20 at 15:34; Status DC Ceftriaxone Sodium (Rocephin) 1 gm Q24H IVP Last administered on 04/08/20at 23:00; Start 04/07/20 at 21:00 Azithromycin 500 mg/Sodium Chloride 250 ml @ 250 mls/hr Q24H IV Last administered on 04/08/20at 23:16; Start 04/07/20 at 21:00 Sodium Chloride 1,000 ml @ 125 mls/hr 1X ONCE IV Last administered on 04/06/20at 00:43; Start 04/06/20 at 22:15; Stop 04/07/20 at 06:14; Status DC Albuterol/ Ipratropium (Duoneb) 3 ml PRN Q4HRS NEB ; Start 04/07/20 at 22:00 Lactobacillus Rhamnosus (Culturelle) 1 cap BID PO Last administered on 04/09/20at 09:30; Start 04/07/20 at 21:00 Acetaminophen/ Hydrocodone Bitart (Lortab 5/325) 1 tab PRN Q6HRS PRN PO MODERATE - SEVERE PAIN Last administered on 04/07/20at 15:22; Start 04/07/20 at 15:15 Polyethylene Glycol (miraLAX PACKET) 17 gm DAILY PO Last administered on 04/09/20at 09:28; Start 04/07/20 at 16:00 Heparin Sodium (Porcine) (Heparin Sodium) 5,000 unit Q8HRS SQ Last administered on 04/09/20at 07:04; Start 04/07/20 at 22:00 Calcitonin [place] (Miacalcin) 400 unit BID SQ Last administered on 04/09/20at 09:32; Start 04/08/20 at 16:00 Potassium Chloride (Klor-Con) 20 meq 1X ONCE PO ; Start 04/09/20 at 12:00; Stop 04/09/20 at 12:01 Magnesium Sulfate 50 ml @ 25 mls/hr 1X ONCE IV ; Start 04/09/20 at 12:00; Stop 04/09/20 at 13:59 Active Scripts Active Lisinopril 10 Mg Tablet 1 Tab PO DAILY Reported Hydrochlorothiazide Capsule (Hydrochlorothiazide) 12.5 Mg Capsule 12.5 Mg PO DAILY Miralax (Polyethylene Glycol 3350) 17 Gm Powd.pack 1 Packet PO DAILY 2 Days dissolve in water Allergies Allergies: Coded Allergies: Penicillins (Verified Allergy, Intermediate, 06/09/18) RASH ROS General: YES: Fatigue, Malaise; No: Chills PSYCHOLOGICAL ROS: YES: Anxiety; No: Behavioral Disorder Eyes: No Blurry vision, No Decreased vision HEENT: No: Heacaches, Visual Changes ALLERGY AND IMMUNOLOGY: No: Nasal Congestion, Post Nasal Drip Hematological and Lymphatic: No: Brusing, Night Sweats ENDOCRINE: YES: Malaise/lethargy; No: Palpitations Breast: No New/Changing Breast Lumps Respiratory: YES: Cough, Shortness of breath, SOB with excertion; No: Hemoptysis, Pleuritic Pain Cardiovascular: No Chest Pain, No Palpitations Gastrointestinal: Yes Nausea; No Vomiting, No Abdominal Pain Genitourinary: No Dysuria, No Flank Pain Musculoskeletal: No Gait Disturbance, No Joint Pain Neurological: No Confusion, No Dizziness Skin: No Dry Skin, No Eczema Vitals VITALS Vital Signs Date Time Temp Pulse Resp B/P (MAP) Pulse Ox O2 Delivery O2 Flow Rate FiO2 04/09/20 07:00 97.2 119 20 141/73 (95) 93 Nasal Cannula 2.0 97.2 Labs Labs Laboratory Tests Test 04/08/20 05:00 04/09/20 06:15 White Blood Count 23.1 x10^3/uL (4.0-11.0) Red Blood Count 3.18 x10^6/uL (3.50-5.40) Hemoglobin 9.7 g/dL (12.0-15.5) Hematocrit 30.0 % (36.0-47.0) Mean Corpuscular Volume 94 fL (79-100) Mean Corpuscular Hemoglobin 31 pg (25-35) Mean Corpuscular Hemoglobin Concent 32 g/dL (31-37) Red Cell Distribution Width 13.8 % (11.5-14.5) Platelet Count 348 x10^3/uL (140-400) Neutrophils (%) (Auto) 94 % (31-73) Lymphocytes (%) (Auto) 2 % (24-48) Monocytes (%) (Auto) 4 % (0-9) Eosinophils (%) (Auto) 0 % (0-3) Basophils (%) (Auto) 0 % (0-3) Neutrophils # (Auto) 21.7 x10^3/uL (1.8-7.7) Lymphocytes # (Auto) 0.5 x10^3/uL (1.0-4.8) Monocytes # (Auto) 0.9 x10^3/uL (0.0-1.1) Eosinophils # (Auto) 0.0 x10^3/uL (0.0-0.7) Basophils # (Auto) 0.0 x10^3/uL (0.0-0.2) Sodium Level 139 mmol/L (136-145) 142 mmol/L (136-145) Potassium Level 3.3 mmol/L (3.5-5.1) 3.1 mmol/L (3.5-5.1) Chloride Level 105 mmol/L (98-107) 108 mmol/L (98-107) Carbon Dioxide Level 23 mmol/L (21-32) 22 mmol/L (21-32) Anion Gap 11 (6-14) 12 (6-14) Blood Urea Nitrogen 70 mg/dL (7-20) 74 mg/dL (7-20) Creatinine 2.7 mg/dL (0.6-1.0) 2.4 mg/dL (0.6-1.0) Estimated GFR (Cockcroft-Gault) 17.2 19.7 BUN/Creatinine Ratio 26 (6-20) Glucose Level 79 mg/dL (70-99) 102 mg/dL (70-99) Calcium Level 14.7 mg/dL (8.5-10.1) 13.2 mg/dL (8.5-10.1) Total Bilirubin 0.3 mg/dL (0.2-1.0) Aspartate Amino Transf (AST/SGOT) 88 U/L (15-37) Alanine Aminotransferase (ALT/SGPT) 17 U/L (14-59) Alkaline Phosphatase 104 U/L (46-116) Total Protein 5.7 g/dL (6.4-8.2) Albumin 2.0 g/dL (3.4-5.0) Albumin/Globulin Ratio 0.5 (1.0-1.7) Phosphorus Level 5.6 mg/dL (2.6-4.7) Magnesium Level 1.5 mg/dL (1.8-2.4) Laboratory Tests Test 04/09/20 06:15 Sodium Level 142 mmol/L (136-145) Potassium Level 3.1 mmol/L (3.5-5.1) Chloride Level 108 mmol/L (98-107) Carbon Dioxide Level 22 mmol/L (21-32) Anion Gap 12 (6-14) Blood Urea Nitrogen 74 mg/dL (7-20) Creatinine 2.4 mg/dL (0.6-1.0) Estimated GFR (Cockcroft-Gault) 19.7 Glucose Level 102 mg/dL (70-99) Calcium Level 13.2 mg/dL (8.5-10.1) Phosphorus Level 5.6 mg/dL (2.6-4.7) Magnesium Level 1.5 mg/dL (1.8-2.4) Images Images CT chest: MPRESSION: 1. There are lytic bone lesions suspicious for bone metastases. Pathologic rib fractures as noted above. 2. There is a bulky left mediastinal ronald mass that is partially calcified. There are partially calcified lung nodules in the medial left lung apex and anterior left upper lobe. Primary consideration is lung malignancy given the other findings. Treated lymphoma or sarcoidosis are less likely considerations. 3. There are several small pleural-based nodules bilaterally suspicious for pleural metastases. 4. Small bilateral pleural effusions. 5. 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 6. There are irregular soft tissue densities in the left upper abdomen and right cardiophrenic fat, indeterminant. Assessment/Plan Assessment/Plan Assessment: Suspected metastatic lung cancer with bone lesions Hypercalcemia of malignancy COPD Tobacco abuse CESILIA, secondary to hypercalcemia Recommendations: -I recommended and discussed the potential risks of percutaneous biopsy with the patient. -He is undecided as to her goals of care. I recommended that she obtain a biopsy since it would better inform the treatment options and prognosis that would be available to her -I recommended completing a biopsy while she is inpatient. She prefers to be discharged and readdress this as outpatient -Counseled her that given hypercalcemia, she would be at high risk for reoccurrence of hypercalcemia without initiation of systemic therapy for this presumed malignancy. -Patient was given contact information for my office. We will schedule her with a follow-up visit next week to continue discussion regarding obtaining a biopsy -Reasonable to discharge from the hospital if she is not interested in a work-up at this time -Suspect metastatic lung cancer. She would eventually need CT of the abdomen and pelvis with contrast and MRI brain for completion of staging. Thank you for the consult Kevin Soriano MD Medical Oncology/Hematology Ph: [phone] MARIUSZ SORIANO MD Apr 09, 2020 11:48
[2020-04-09] MEDS ORDERED: MAGNESIUM SULFATE 2GM 50 ML IV ONE (12:00)
[2020-04-09] MEDS ORDERED: POTASSIUM CHLORIDE 20 MEQ TABLET.ER. PO ONE (12:00)
--- NOTE | 2020-04-09 12:59 | NUR ---
SS following up with discharge planning. SS reviewed pt chart and discussed with pt RN. Pt is currently requiring oxygen. Pt on IV Azithromycin and Rocephin. PT/OT recommended senior care unit. COVID19 negative. Hematology and Pulmonology following and discussing with family. SS spoke with pt's daughter, Bessy Batista, via phone. Pt's daughter reported that she would like pt to go to senior care unit at [facility], ; fax [phone], but is concerned that pt will not want to go because pt wants to go home and smoke. Pt's daughter asked questions about hospice services at home. SS provided education on hospice. SS also provided information on Medicaid application and LTC. Pt's daughter requested referral to [facility]. SS phoned and faxed referral as requested. SS will continue to follow for discharge planning.
[2020-04-09 15:00] VITALS: BP 126/51
--- NOTE | 2020-04-09 16:01 | NUR ---
SS following up with discharge planning. Pt declined at [facility]. SS contacted pt's daughter, Bessy Batista, , to discuss discharge planning. Pt's daughter reported that they have spoken with pt and family and pt wants to go home and does not want to pursue treatment any further. Pt's daughter requesting hospice services with no preference of company. SS phoned and faxed referral to [facility], ; fax [phone]. Pt's RN notified. SS will continue to follow for discharge planning.
[2020-04-09 19:51] VITALS: BP 126/63
[2020-04-09] MEDS: AZITHROMYCIN 500 MG in IV NORMAL SALINE 250ML 250 ML IV SCH (21:39)
[2020-04-09] MEDS: cefTRIAXone IV Push 1 GM VIAL. IVP SCH (21:40)
[2020-04-09 22:31] VITALS: BP 128/59
[2020-04-10] MEDS: HYDROcodone/APAP 5/325MG 1 TAB TABLET PO PRN (01:53)
[2020-04-10 02:56] VITALS: BP 134/55
[2020-04-10 05:50] LABS: CREATININE 2.3 mg/dL (0.6-1.0); GFR 20.7; MAGNESIUM 2.1 mg/dL (1.8-2.4); PHOSPHORUS 5.3 mg/dL (2.6-4.7); POTASSIUM 3.5 mmol/L (3.5-5.1)
[2020-04-10 05:56] LABS: CALCIUM 13.5 mg/dL (8.5-10.1)
--- NOTE | 2020-04-10 06:00 | NUR ---
Pt calcium level 13.1, aware, will cont poc. will cont to monitor pt status and safety. pmrn
[2020-04-10] MEDS: HEPARIN for SUB-Q USE 5,000 UNIT/ML VIAL. SQ SCH (06:29)
[2020-04-10 07:00] VITALS: BP 142/70
--- NOTE | 2020-04-10 08:33 | PDOC ---
PULMONARY PROGRESS NOTES DATE: 04/10/20 TIME: 08:33 Subjective Patient not more short of air no respiratory Vitals Vital Signs Date Time Temp Pulse Resp B/P (MAP) Pulse Ox O2 Delivery O2 Flow Rate FiO2 04/10/20 02:56 97.6 65 18 134/55 (81) 97 Nasal Cannula 2.0 97.6 ROS: No Chest Pain, No Abdominal Pain, No Increase Cough General: Alert Lungs: Clear Cardiovascular: S1, S2 Abdomen: Soft Neuro Exam: Alert Extremities: No Edema Skin: Warm Labs Laboratory Tests Test 04/09/20 06:15 04/10/20 05:15 Sodium Level 142 mmol/L (136-145) 144 mmol/L (136-145) Potassium Level 3.1 mmol/L (3.5-5.1) 3.5 mmol/L (3.5-5.1) Chloride Level 108 mmol/L (98-107) 111 mmol/L (98-107) Carbon Dioxide Level 22 mmol/L (21-32) 23 mmol/L (21-32) Anion Gap 12 (6-14) 10 (6-14) Blood Urea Nitrogen 74 mg/dL (7-20) 67 mg/dL (7-20) Creatinine 2.4 mg/dL (0.6-1.0) 2.3 mg/dL (0.6-1.0) Estimated GFR (Cockcroft-Gault) 19.7 20.7 Glucose Level 102 mg/dL (70-99) 97 mg/dL (70-99) Calcium Level 13.2 mg/dL (8.5-10.1) 13.5 mg/dL (8.5-10.1) Phosphorus Level 5.6 mg/dL (2.6-4.7) 5.3 mg/dL (2.6-4.7) Magnesium Level 1.5 mg/dL (1.8-2.4) 2.1 mg/dL (1.8-2.4) Laboratory Tests Test 04/10/20 05:15 Sodium Level 144 mmol/L (136-145) Potassium Level 3.5 mmol/L (3.5-5.1) Chloride Level 111 mmol/L (98-107) Carbon Dioxide Level 23 mmol/L (21-32) Anion Gap 10 (6-14) Blood Urea Nitrogen 67 mg/dL (7-20) Creatinine 2.3 mg/dL (0.6-1.0) Estimated GFR (Cockcroft-Gault) 20.7 Glucose Level 97 mg/dL (70-99) Calcium Level 13.5 mg/dL (8.5-10.1) Phosphorus Level 5.3 mg/dL (2.6-4.7) Magnesium Level 2.1 mg/dL (1.8-2.4) Medications Active Scripts Medications Dose Route/Sig Max Daily Dose Days Date Category Dose Instructions Hydrochlorothiazide Capsule (Hydrochlorothiazide) 12.5 Mg Capsule 12.5 Mg PO DAILY 04/07/20 Reported Miralax (Polyethylene Glycol 3350) 17 Gm Powd.pack 1 Packet PO DAILY 2 04/07/20 Reported dissolve in water Lisinopril 10 Mg Tablet 1 Tab PO DAILY 06/09/18 Rx Impression . IMPRESSION: 1. Abnormal x-ray, revealing some chronic changes, possibly volume loss in the right upper lobe.SEE CT REPORT 2. Acute exacerbation of chronic obstructive pulmonary disease. 3. Possible pneumonia. 4. Acute on chronic renal failure. 5. Hypercalcemia. 6. Hypomagnesemia. 7. Chronic obstructive pulmonary disease, unknown FEV1. 8. Alcoholism. 9. Severe protein malnutrition, present upon admission. 10. SARS-CoV-2 negative. 11. Suspect metastatic cancer CT CEST IMPRESSION: 1. There are lytic bone lesions suspicious for bone metastases. Pathologic rib fractures as noted above. 2. There is a bulky left mediastinal ronald mass that is partially calcified. There are partially calcified lung nodules in the medial left lung apex and anterior left upper lobe. Primary consideration is lung malignancy given the other findings. Treated lymphoma or sarcoidosis are less likely considerations. 3. There are several small pleural-based nodules bilaterally suspicious for pleural metastases. 4. Small bilateral pleural effusions. 5. 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 6. There are irregular soft tissue densities in the left upper abdomen and right cardiophrenic fat, indeterminant. Plan . Discussed with family, patient to discharge home today with palliative care GABRIELA ANDREWS MD Apr 10, 2020 08:33
[2020-04-10] MEDS: POLYETHYLENE GLYCOL 3350 17 GM PACKET. PO SCH (08:42)
[2020-04-10] MEDS: IV NORMAL SALINE 1000ML BAG 1,000 ML IV SCH (08:42)
[2020-04-10] MEDS: LACTOBACILLUS RHAMNOSUS GG 1 CAPSULE. PO SCH (08:42)
[2020-04-10] MEDS: CALCITONIN,SALMON 400 UNIT/2 ML VIAL. SQ SCH (08:42)
[2020-04-10 11:00] VITALS: BP 130/64
[2020-04-10] MEDS ORDERED: LORA0.5T96 PO (12:27)
[2020-04-10] MEDS ORDERED: OXYC-325 PO (12:28)
--- NOTE | 2020-04-10 12:29 | SNU/HH DC ---
DISCHARGE ORDERS DISCHARGE INFORMATION: DISCHARGE DATE: Apr 10, 2020 FINAL DIAGNOSIS Problems Medical Problems: (1) Hypercalcemia Status: Acute (2) negative for COVID-19 Status: Acute CONDITION ON DISCHARGE: Stable CODE STATUS: Code Status: DNR/DNI HOSPICE: HOSPICE EVAL & TREAT: Yes DISCHARGE MEDICATIONS: Home Meds Active Scripts Oxycodone HCl/Acetaminophen (Percocet 5-325 mg Tablet) 1 Each Tablet, 1 TAB PO QIDPRN PRN for PAIN MDD 4 Tablet(s) for 5 Days, #20 TAB 0 Refills Prov:KARLENE PAGAN MD 04/10/20 Lorazepam (ATIVAN) 0.5 Mg Tablet, 0.5 MG PO TID for anxiety for 7 Days, #21 TAB Prov:KARLENE PAGAN MD 04/10/20 Reported Medications Polyethylene Glycol 3350 (MIRALAX) 17 Gm Powd.pack, 1 PACKET PO DAILY for constipation for 2 Days, #2 PACKET 0 Refills dissolve in water 04/07/20 Discontinued Reported Medications Hydrochlorothiazide (HYDROCHLOROTHIAZIDE CAPSULE ) 12.5 Mg Capsule, 12.5 MG PO DAILY for DIURETIC, CAP 0 Refills 04/07/20 Discontinued Scripts Lisinopril (LISINOPRIL) 10 Mg Tablet, 1 TAB PO DAILY, #30 TAB 0 Refills Prov:RALPH ALEJO APRN 06/09/18 KARLENE PAGAN MD Apr 10, 2020 12:29
--- NOTE | 2020-04-10 12:30 | PDOC ---
Renal-Progress Notes Subjective Notes Notes CONFUSED History of Present Illness Hx of present illness NO NEW COMPLAINTS Vitals Vitals Vital Signs Date Time Temp Pulse Resp B/P (MAP) Pulse Ox O2 Delivery O2 Flow Rate FiO2 04/10/20 11:00 97.9 117 20 130/64 (86) 99 Nasal Cannula 4.0 97.9 Weight Weight [ ] I.O. Intake and Output Intake and Output 04/10/20 07:00 Intake Total 1190 ml Output Total 1400 ml Balance -210 ml Intake Oral 1190 ml Output Urine Total 1400 ml # Voids 1 # Bowel Movements 3 Labs Labs Laboratory Tests Test 04/10/20 05:15 Sodium Level 144 mmol/L (136-145) Potassium Level 3.5 mmol/L (3.5-5.1) Chloride Level 111 mmol/L (98-107) Carbon Dioxide Level 23 mmol/L (21-32) Anion Gap 10 (6-14) Blood Urea Nitrogen 67 mg/dL (7-20) Creatinine 2.3 mg/dL (0.6-1.0) Estimated GFR (Cockcroft-Gault) 20.7 Glucose Level 97 mg/dL (70-99) Calcium Level 13.5 mg/dL (8.5-10.1) Phosphorus Level 5.3 mg/dL (2.6-4.7) Magnesium Level 2.1 mg/dL (1.8-2.4) Micro Micro Microbiology 04/07/20 Blood Culture - Preliminary, Resulted NO GROWTH AFTER 3 DAYS 04/06/20 Urine Culture - Final, Complete Review of Systems Constitutional: yes: other (CONFUSED) Physical Exam General Appearance: no apparent distress Skin: warm Respiratory: bilateral CTA Heart: S1S2, RRR Abdomen: soft, bowel sounds present Genitourinary: bladder flat Extremities: pulses present Neurology: alert, confused Musculoskeletal: Osteoarthritis Assessment Assessment IMP CESILIA-ATN-CR IMPROVED EXTRACELLULAR VOLUME DEPLETION WEAKNESS SEVERE HYPERCALCEMIA-IMPROVED LOW MAG AND LOW K-BETTER PROB LUNG MALIGNANCY WITH METS CAP PROBABLY TOBACCOISM PLAN PULM AND HEME/ONC EVALUATION SALINE HYDRATION CONT CALCITONIN SQ REPLACE K AND MAG NEEDED AVOID THIAZIDE SPEP PENDING WILL FOLLOW D/W ATTENDING GLADIS COOK MD Apr 10, 2020 12:30
--- NOTE | 2020-04-10 12:37 | PDOC3 ---
Discharge Summary Visit Information Date of Admission: Apr 07, 2020 Date of Discharge: Apr 10, 2020 Admitting Diagnosis Comment: impression 1. chronic pulmonary fibrosis. 2. Possible volume loss in the right as well as infiltrates. Atypical pneumonia or a mass with postobstructive atelectasis is possible. 3. LOW BACK PAIN 4. Recent 15 lb weight loss 5. tobacco abuse disorder 6. renal failure, ? acute, CESILIA? 7. NAUSEA AND VOMITING, VOLUME DEPLETION 8. uti Final Diagnosis Problems Medical Problems: (1) Hypercalcemia Status: Acute (2) Person under investigation for COVID-19 Status: Acute Generalized weakness, given results of imaging studies, high suspicion for underlying malignancy. Acute exacerbation of chronic obstructive pulmonary disease. Community acquired pneumonia.? Acute on chronic renal failure. Hypercalcemia. Malignancy related, Multiple myeloma a possibility given lytic lesions on imaging studies. Hypomagnesemia. History of alcohol abuse Severe protein malnutrition, present upon admission. SARS-CoV-2 negative. Brief Hospital Course Allergies Allergies Coded Allergies Type Severity Reaction Last Updated Verified Penicillins Allergy Intermediate 06/09/18 Yes Vital Signs Vital Signs Date Time Temp Pulse Resp B/P (MAP) Pulse Ox O2 Delivery O2 Flow Rate FiO2 04/10/20 11:00 97.9 117 20 130/64 (86) 99 Nasal Cannula 4.0 97.9 Lab Results Laboratory Tests Test 04/09/20 06:15 04/10/20 05:15 Sodium Level 142 mmol/L (136-145) 144 mmol/L (136-145) Potassium Level 3.1 mmol/L (3.5-5.1) 3.5 mmol/L (3.5-5.1) Chloride Level 108 mmol/L (98-107) 111 mmol/L (98-107) Carbon Dioxide Level 22 mmol/L (21-32) 23 mmol/L (21-32) Anion Gap 12 (6-14) 10 (6-14) Blood Urea Nitrogen 74 mg/dL (7-20) 67 mg/dL (7-20) Creatinine 2.4 mg/dL (0.6-1.0) 2.3 mg/dL (0.6-1.0) Estimated GFR (Cockcroft-Gault) 19.7 20.7 Glucose Level 102 mg/dL (70-99) 97 mg/dL (70-99) Calcium Level 13.2 mg/dL (8.5-10.1) 13.5 mg/dL (8.5-10.1) Phosphorus Level 5.6 mg/dL (2.6-4.7) 5.3 mg/dL (2.6-4.7) Magnesium Level 1.5 mg/dL (1.8-2.4) 2.1 mg/dL (1.8-2.4) Laboratory Tests Test 04/10/20 05:15 Sodium Level 144 mmol/L (136-145) Potassium Level 3.5 mmol/L (3.5-5.1) Chloride Level 111 mmol/L (98-107) Carbon Dioxide Level 23 mmol/L (21-32) Anion Gap 10 (6-14) Blood Urea Nitrogen 67 mg/dL (7-20) Creatinine 2.3 mg/dL (0.6-1.0) Estimated GFR (Cockcroft-Gault) 20.7 Glucose Level 97 mg/dL (70-99) Calcium Level 13.5 mg/dL (8.5-10.1) Phosphorus Level 5.3 mg/dL (2.6-4.7) Magnesium Level 2.1 mg/dL (1.8-2.4) Brief Hospital Course History and Physical Date of Admission Date of Admission DATE: 04/07/20 TIME: 08:31 Identification/Chief Complaint Chief Complaint SEEN IN ER WITH WEAKNESS , 74 year old female with past medical history of hypertension and COPD daily smoker presents with a chief complaint of generalized weakness associated with nausea and vomiting since the beginning of February. Patient states nausea and vomiting have been going on and off since onset. Patient states weakness has progressively become worse. Patient has occasional cough with sputum production which she states is chronic. She denies any fever chills chest pain or shortness of breath. CR NOW IN 3 RANGE, C/O BACK PAIN, 15 LB RECENT WEIGHT LOSS, Nephrology consulted, uti likely 04/08/2020 Patient feeling better she relates to me that she has had hypercalcemia for a long time now. Patient was given results of her imaging studies and the suspicion for malignancy She seems more interested in going home 04/09/2020 Patient seems to be doing better. She is very interested in going home. We will follow recommendations from product marketing consultant if no further inpatient inpatient services required patient may be discharged later in the day Patient seen in consultation by oncology pulmonology in nephrology. She was placed on IV fluids in order to address her hypercalcemia which most likely is malignancy related. Patient's hydrochlorothiazide also was held, patient was offered biopsy by our pulmonary product marketing consultant and she was not interested at the present time. Oncology recommendations are greatly appreciated and are as follows: Suspected metastatic lung cancer with bone lesions Hypercalcemia of malignancy COPD Tobacco abuse CESILIA, secondary to hypercalcemia Recommendations: -I recommended and discussed the potential risks of percutaneous biopsy with the patient. -He is undecided as to her goals of care. I recommended that she obtain a biopsy since it would better inform the treatment options and prognosis that would be available to her -I recommended completing a biopsy while she is inpatient. She prefers to be discharged and readdress this as outpatient -Counseled her that given hypercalcemia, she would be at high risk for reoccurrence of hypercalcemia without initiation of systemic therapy for this presumed malignancy. -Patient was given contact information for my office. We will schedule her with a follow-up visit next week to continue discussion regarding obtaining a biopsy -Reasonable to discharge from the hospital if she is not interested in a work-up at this time -Suspect metastatic lung cancer. She would eventually need CT of the abdomen and pelvis with contrast and MRI brain for completion of staging. Thank you for the consult Kevin Soriano MD Medical Oncology/Hematology Ph: [phone] After lengthy discussion with the patient and her family members with the help with case management. Decision was made to transition to a hospice treatment plan given the grim prognosis at the present time. I have talked to the son prior to discharge and provide as much reassurance as possible. Patient has very poor prognosis given the frailty of her current situation and she probably would not even be a good candidate for palliative chemotherapy given her poor functional status. All concerns were addressed to the best of my abilities she will be transitioning home later in the day via private vehicle with her sister General: Alert, Oriented X3, Cooperative, No acute distress Heart: Regular rate Lungs: Clear Abdomen: Normal bowel sounds, Soft, No hepatosplenomegaly Extremities: No clubbing Skin: No breakdown Greater than 35-minute spent in the discharge process the patient counseling coordination of care and arrangements for a safe discharge Assessment Assessment CT chest: MPRESSION: 1. There are lytic bone lesions suspicious for bone metastases. Pathologic rib fractures as noted above. 2. There is a bulky left mediastinal ronald mass that is partially calcified. There are partially calcified lung nodules in the medial left lung apex and anterior left upper lobe. Primary consideration is lung malignancy given the other findings. Treated lymphoma or sarcoidosis are less likely considerations. 3. There are several small pleural-based nodules bilaterally suspicious for pleural metastases. 4. Small bilateral pleural effusions. 5. 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 6. There are irregular soft tissue densities in the left upper abdomen and right cardiophrenic fat, indeterminant. Discharge Information Condition at Discharge: Stable Disposition/Orders: D/C to Home w/ Hospice Scheduled Lorazepam (Ativan) 0.5 Mg Tablet, 0.5 MG PO TID for anxiety for 7 Days, #21 Prescribed by: KARLENE PAGAN MD on 04/10/20 1227 Polyethylene Glycol 3350 (Miralax) 17 Gm Powd.pack, 1 PACKET PO DAILY for constipation for 2 Days, #2 Ref 0 (Reported) dissolve in water Entered as Reported by: Amandeep Christiansen on 04/07/20724 Last Action: Continued on 04/07/201521 by CARLOS VOSS MD Scheduled PRN Oxycodone HCl/Acetaminophen (Percocet 5-325 mg Tablet) 1 Each Tablet, 1 TAB PO Q IDPRN PRN for PAIN MDD 4 Tablet(s) for 5 Days, #20 Ref 0 Prescribed by: KARLENE PAGAN MD on 04/10/20 1228 Discontinued Medications Hydrochlorothiazide (Hydrochlorothiazide Capsule ) 12.5 Mg Capsule, 12.5 MG PO DAILY for DIURETIC, Ref 0 (Reported) Entered as Reported by: Amandeep Christiansen on 04/07/20724 Last Action: HELD on 04/07/201521 by CARLOS VOSS MD Lisinopril (Lisinopril) 10 Mg Tablet, 1 TAB PO DAILY, #30 Ref 0 Prescribed by: RALPH ALEJO APRN on 06/09/18 1151 Last Action: HELD on 04/07/201521 by CARLOS VOSS MD Justicifation of Admission Dx: Justifications for Admission: Justification of Admission Dx: Yes Acute Renal Failure: 3-Fold Rise in Serum Crea KARLENE PAGAN MD Apr 10, 2020 12:37
--- NOTE | 2020-04-10 12:41 | NUR ---
SS following up with discharge planning. SS met with pt and spoke with pt's family. Pt and family agreeable to hospice with [facility], ; fax [phone]. Consents signed. Discharge orders received. SS phoned and faxed discharge orders to [facility]. Pt will discharge to home today with [facility]. Pt's family reported that they will provide transportation. [facility] delivering oxygen tank for transport to home. Pt's RN notified.
--- NOTE | 2020-04-10 15:00 | NUR ---
Discharge Note: MATTHEW ALVAREZ Discharge instructions and discharge home medications reviewed with Patient and a copy given. All questions have been answered and understanding verbalized. All belongings taken with family upon discharge. Patient and family given information on ativan and oxycodone. Discontinued lines and drains: Peripheral IV intact. Patient discharged to Home w/ Hospice with Family via Wheelchair
--- NOTE | 2020-04-10 16:15 | PDOC ---
PROGRESS NOTES Date of Service DATE: 04/10/20 TIME: 16:11 Subjective Subjective Angelika was seen in a follow-up visit today. Her 2 sons, [id number] and grandchild were present during my visit. She reports nausea and vomiting today. She denies fever or chills. She notes that breathing has been stable. She d enies abdominal pain, constipation Objective Objective Vital Signs Date Time Temp Pulse Resp B/P (MAP) Pulse Ox O2 Delivery O2 Flow Rate FiO2 04/10/20 11:00 97.9 117 20 130/64 (86) 99 Nasal Cannula 4.0 97.9 Intake and Output 04/10/20 07:00 Intake Total 1190 ml Output Total 1400 ml Balance -210 ml Intake Oral 1190 ml Output Urine Total 1400 ml # Voids 1 # Bowel Movements 3 Physical Exam Abdomen: Normal bowel sounds, Soft Heart: Regular rate Extremities: No clubbing General: Alert HEENT: Atraumatic Lungs: Clear to auscultation Neck: Supple, No JVD Neuro: Normal speech Skin: No rashes Assessment Assessment 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 -I recommended that she obtain a biopsy since it would better inform the treatment options and prognosis that would be available to her -She informed me today that she was not interested in further evaluation or pursuing any therapies for her cancer. -She told me today that her primary objective was symptom management and being comfortable. She plans on enrolling in hospice and this is a reasonable plan given her goals -I discussed with the patient and her family that I would be able to see her in my office for continued discussion if she is interested in pursuing diagnosis and treatment. Contact information for my office was provided to her in the form of a business card. Kevin Fiore MD Medical Oncology/Hematology Ph: [phone] Comment Review of Relevant I have reviewed the following items luke (where applicable) has been applied. Labs Laboratory Tests Test 04/09/20 06:15 04/10/20 05:15 Sodium Level 142 mmol/L (136-145) 144 mmol/L (136-145) Potassium Level 3.1 mmol/L (3.5-5.1) 3.5 mmol/L (3.5-5.1) Chloride Level 108 mmol/L (98-107) 111 mmol/L (98-107) Carbon Dioxide Level 22 mmol/L (21-32) 23 mmol/L (21-32) Anion Gap 12 (6-14) 10 (6-14) Blood Urea Nitrogen 74 mg/dL (7-20) 67 mg/dL (7-20) Creatinine 2.4 mg/dL (0.6-1.0) 2.3 mg/dL (0.6-1.0) Estimated GFR (Cockcroft-Gault) 19.7 20.7 Glucose Level 102 mg/dL (70-99) 97 mg/dL (70-99) Calcium Level 13.2 mg/dL (8.5-10.1) 13.5 mg/dL (8.5-10.1) Phosphorus Level 5.6 mg/dL (2.6-4.7) 5.3 mg/dL (2.6-4.7) Magnesium Level 1.5 mg/dL (1.8-2.4) 2.1 mg/dL (1.8-2.4) Laboratory Tests Test 04/10/20 05:15 Sodium Level 144 mmol/L (136-145) Potassium Level 3.5 mmol/L (3.5-5.1) Chloride Level 111 mmol/L (98-107) Carbon Dioxide Level 23 mmol/L (21-32) Anion Gap 10 (6-14) Blood Urea Nitrogen 67 mg/dL (7-20) Creatinine 2.3 mg/dL (0.6-1.0) Estimated GFR (Cockcroft-Gault) 20.7 Glucose Level 97 mg/dL (70-99) Calcium Level 13.5 mg/dL (8.5-10.1) Phosphorus Level 5.3 mg/dL (2.6-4.7) Magnesium Level 2.1 mg/dL (1.8-2.4) Microbiology 04/07/20 Blood Culture - Preliminary, Resulted NO GROWTH AFTER 3 DAYS 04/06/20 Urine Culture - Final, Complete Medications Current Medications Sodium Chloride 1,000 ml @ 1,000 mls/hr 1X ONCE IV Last administered on 04/06/20at 21:37; Start 04/06/20 at 20:15; Stop 04/06/20 at 21:14; Status DC Sodium Chloride 1,000 ml @ 1,000 mls/hr 1X ONCE IV Last administered on 04/06/20at 01:00; Start 04/06/20 at 21:30; Stop 04/06/20 at 22:29; Status DC Ceftriaxone Sodium (Rocephin) 1 gm 1X ONCE IVP Last administered on 04/06/20at 21:36; Start 04/06/20 at 21:30; Stop 04/06/20 at 21:31; Status DC Azithromycin (Zithromax) 500 mg 1X ONCE PO Last administered on 04/06/20at 21:35; Start 04/06/20 at 21:30; Stop 04/06/20 at 21:31; Status DC Ondansetron HCl (Zofran) 4 mg PRN Q8HRS PRN IV NAUSEA/VOMITING Last administered on 04/07/20at 20:26; Start 04/06/20 at 21:45; Stop 04/07/20 at 21:44; Status DC Sennosides (Senna) 17.2 mg PRN BID PRN PO CONSTIPATION Last administered on 04/07/20at 09:24; Start 04/06/20 at 21:45 Docusate Sodium (Colace) 100 mg PRN DAILY PRN PO HARD STOOLS Last administered on 04/07/20at 09:24; Start 04/06/20 at 21:45 Ondansetron HCl (Zofran) 4 mg PRN Q6HRS PRN IVP NAUSEA/VOMITING; Start 04/06/20 at 21:45 Albuterol/ Ipratropium (Duoneb) 3 ml RTQID NEB ; Start 04/07/20 at 08:00; Stop 04/06/20 at 22:04; Status DC Potassium Chloride (Klor-Con) 40 meq 1X PRN PO PER PROTOCOL Last administered on 04/09/20at 09:29; Start 04/06/20 at 21:45 Magnesium Oxide (Magnesium Oxide) 400 mg PRN BID PRN PO SEE PARAMETER; Start 04/07/20 at 09:00 Potassium Chloride/Water 100 ml @ 100 mls/hr PRN Q1HR PRN IV SEE PARAMETER; Start 04/06/20 at 21:45 Magnesium Sulfate 50 ml @ 25 mls/hr PRN Q24HRS PRN IV SEE PARAMETER Last administered on 04/09/20at 09:33; Start 04/06/20 at 21:45 Potassium Chloride/Water 100 ml @ 100 mls/hr PRN Q1HR PRN IV low k; Start 04/06/20 at 21:45 Dextrose (Dextrose 50%-Water Syringe) 12.5 gm PRN Q15MIN PRN IV SEE COMMENTS; Start 04/06/20 at 21:45 Sodium Chloride 1,000 ml @ 100 mls/hr Q10H IV Last administered on 04/10/20at 08:42; Start 04/06/20 at 21:33 Acetaminophen (Tylenol) 650 mg PRN Q4HRS PRN PO TEMP OVER 100.4F OR MILD PAIN Last administered on 04/07/20at 09:24; Start 04/06/20 at 21:45 Albuterol/ Ipratropium (Duoneb) 3 ml Q4HRS W/A NEB ; Start 04/06/20 at 22:00; Stop 04/07/20 at 01:16; Status DC Heparin Sodium (Porcine) (Heparin Sodium) 5,000 unit Q12HR SQ Last administered on 04/07/20at 09:25; Start 04/07/20 at 09:00; Stop 04/07/20 at 15:34; Status DC Ceftriaxone Sodium (Rocephin) 1 gm Q24H IVP Last administered on 04/09/20at 21:40; Start 04/07/20 at 21:00 Azithromycin 500 mg/Sodium Chloride 250 ml @ 250 mls/hr Q24H IV Last administered on 04/09/20at 21:39; Start 04/07/20 at 21:00 Sodium Chloride 1,000 ml @ 125 mls/hr 1X ONCE IV Last administered on 04/06/20at 00:43; Start 04/06/20 at 22:15; Stop 04/07/20 at 06:14; Status DC Albuterol/ Ipratropium (Duoneb) 3 ml PRN Q4HRS NEB ; Start 04/07/20 at 22:00 Lactobacillus Rhamnosus (Culturelle) 1 cap BID PO Last administered on 04/10/20at 08:42; Start 04/07/20 at 21:00 Acetaminophen/ Hydrocodone Bitart (Lortab 5/325) 1 tab PRN Q6HRS PRN PO MODERATE - SEVERE PAIN Last administered on 04/10/20at 01:53; Start 04/07/20 at 15:15 Polyethylene Glycol (miraLAX PACKET) 17 gm DAILY PO Last administered on 04/09/20at 09:28; Start 04/07/20 at 16:00 Heparin Sodium (Porcine) (Heparin Sodium) 5,000 unit Q8HRS SQ Last administered on 04/10/20at 06:29; Start 04/07/20 at 22:00 Calcitonin [place] (Miacalcin) 400 unit BID SQ Last administered on 04/10/20at 08:42; Start 04/08/20 at 16:00 Potassium Chloride (Klor-Con) 20 meq 1X ONCE PO ; Start 04/09/20 at 12:00; Stop 04/09/20 at 12:01; Status DC Magnesium Sulfate 50 ml @ 25 mls/hr 1X ONCE IV ; Start 04/09/20 at 12:00; Stop 04/09/20 at 13:59; Status DC Active Scripts Active Percocet 5-325 mg Tablet (Oxycodone HCl/Acetaminophen) 1 Each Tablet 1 Tab PO QIDPRN PRN MDD 4 Tablet(s) 5 Days Ativan (Lorazepam) 0.5 Mg Tablet 0.5 Mg PO TID 7 Days Reported Miralax (Polyethylene Glycol 3350) 17 Gm Powd.pack 1 Packet PO DAILY 2 Days dissolve in water Vitals/I & O Vital Sign - Last 24 Hours 04/09/20 04/09/20 04/09/20 04/10/20 19:51 20:10 22:31 01:53 Temp 97.6 97.4 97.6 97.4 Pulse 110 119 Resp 18 18 B/P (MAP) 126/63 (84) 128/59 (82) Pulse Ox 100 100 O2 Delivery Nasal Cannula Nasal Cannula Nasal Cannula Nasal Cannula O2 Flow Rate 2.0 2.0 2.0 04/10/20 04/10/20 04/10/20 04/10/20 02:53 02:56 07:00 08:00 Temp 97.6 97.6 97.6 97.6 Pulse 65 101 Resp 18 22 B/P (MAP) 134/55 (81) 142/70 (94) Pulse Ox 97 96 O2 Delivery Nasal Cannula Nasal Cannula Nasal Cannula Nasal Cannula O2 Flow Rate 2.0 4.0 4.0 04/10/20 11:00 Temp 97.9 97.9 Pulse 117 Resp 20 B/P (MAP) 130/64 (86) Pulse Ox 99 O2 Delivery Nasal Cannula O2 Flow Rate 4.0 Intake and Output 0 04/09/20 04/09/20 04/10/20 15:00 23:00 07:00 Intake Total 300 ml 200 ml 690 ml Output Total 200 ml 500 ml 700 ml Balance 100 ml -300 ml -10 ml Justifications for Admission Other Justification Nutrition Consultation Dietary Evaluation: Recommendations by RD: Dietary education by RD, Increase Calorie Intake, Protein supplementation Comments: Continue w/regular diet as ordered to liberalize food choices and promote improved PO intake REC Ensure (vanilla) TID Expected Outcomes/Goals: PO intake to meet >75% est needs Malnutrition Findings: Food and Nutrition Intake (Mod: <75% est energy req 7days Weight Status: Underweight MARIUSZ FIORE MD Apr 10, 2020 16:15
[2020-04-10 19:09] LABS: ALBUM 2.4 g/dL (2.9-4.4); ALPHA 1 0.3 g/dL (0.0-0.4); BETA 0.6 g/dL (0.7-1.3); GAMMA 0.7 g/dL (0.4-1.8); SPEP AG RATIO 0.9 (0.7-1.7)
== END 2020-04-10 15:00 | disposition hospice, home (50) | DRG 177 ==
LOC: ER 19:29 → ED HOLD 23:52 → OBSVTOIN 23:53 → 6 SOUTH 04-07 00:57 → 2 SOUTH 04-07 22:56
PROVIDERS: ADMIT Internal Medicine; ATTEND Internal Medicine
DX: J15.6 Pneumonia due to other Gram-negative bacteria (principal); E43 Unspecified severe protein-calorie malnutrition; N17.0 Acute kidney failure with tubular necrosis; C34.90 Malignant neoplasm of unspecified part of unspecified bronchus or lung; C90.00 Multiple myeloma not having achieved remission; J44.0 Chronic obstructive pulmonary disease with (acute) lower respiratory infection; J44.1 Chronic obstructive pulmonary disease with (acute) exacerbation; N39.0 Urinary tract infection, site not specified; C79.51 Secondary malignant neoplasm of bone; Z68.1 Body mass index [BMI] 19.9 or less, adult; E83.42 Hypomagnesemia; E83.52 Hypercalcemia; E86.9 Volume depletion, unspecified; F10.20 Alcohol dependence, uncomplicated; F17.210 Nicotine dependence, cigarettes, uncomplicated; F41.9 Anxiety disorder, unspecified; I12.9 Hypertensive chronic kidney disease with stage 1 through stage 4 chronic kidney disease, or unspecified chronic kidney disease; N18.9 Chronic kidney disease, unspecified; Z20.828 Contact with and (suspected) exposure to other viral communicable diseases; Z79.899 Other long term (current) drug therapy; Z82.49 Family history of ischemic heart disease and other diseases of the circulatory system; Z82.5 Family history of asthma and other chronic lower respiratory diseases; M19.90 Unspecified osteoarthritis, unspecified site; Z88.0 Allergy status to penicillin
CPT/HCPCS: 36415; 71045; 71250; 76770; 80048; 80053; 81001; 82306; 83605; 83735; 83970; 84100; 84165; 84484; 85007; 85025; 85610; 85730; 87040; 87086; 93005; 96374; 96375; 99285; G0379; J0456; J0630; J0696; J1644; J2405; J3475; J7030; J7050; 97116-GP; 97530-GO; 97530-GP; G0378; U0003-CS